=== PATIENT | male | born 1935 | race Caucasian/White ===

== ENCOUNTER 2018-02-13 13:30 | Outpatient (RCR) | payer MEDICARE, OTHER, SELFPAY | END 2018-02-13 15:40 | LOC: SP 13:30 | PROVIDERS: Family Provider Family Medicine; PCP Family Medicine; Visit Provider Psychiatry & Neurology Neurology | DX: G20 Parkinson's disease (principal); R41.89 Other symptoms and signs involving cognitive functions and awareness | CPT/HCPCS: 92507; 92526 ==

== ENCOUNTER → 2018-05-03 08:35 | Outpatient (CLI) | payer MEDICARE, OTHER, SELFPAY ==
[2018-05-03 09:06] LABS: Add Manual Diff / Slide Review NO; Basophils Percent Auto 0.6 % (0-2); Eosinophils Percent Auto 4.5 % (2-4); Hematocrit 43.4 % (41-53); Hemoglobin 14.6 g/dL (13.5-17.5); Lymphocytes Percent Auto 38.1 % (25-40); Mean Corpuscular HGB Conc 33.7 % (30-36); Mean Corpuscular Volume 91.9 fL (80-100); Monocytes Percent Auto 7.8 % (3-14); Neutrophils Absolute Auto 2900 /uL (3000-5900); Platelet Count 137 X10^3/uL (150-400); Red Blood Cell Count 4.72 X10^6/uL (4.5-5.9); Red Cell Distribution Width 13.2 % (11.6-14.8); White Blood Cell Count 5.8 X10^3/uL (4.5-11.0)
[2018-05-03 09:25] LABS: Alanine Aminotransferase 17 IU/L (21-72); Albumin 4.3 g/dL (3.5-5.0); Albumin Globulin Ratio 1.7 (1.0-2.8); Alkaline Phosphatase 56 U/L (38-126); Aspartate Aminotransferase 28 IU/L (17-59); Bilirubin Total 0.9 mg/dL (0.2-1.3); Blood Urea Nitrogen 18 mg/dL (9-20); Calcium 9.2 mg/dL (8.4-10.2); Carbon Dioxide 32 mmol/L (22-32); Chloride 103 mmol/L (98-107); Cholesterol 107 mg/dL (140-199); Estimated Glomerular Filt Rate > 60.0 mL/min (>60); Globulin 2.6 g/dL (1.7-4.1); Glucose 120 mg/dL (80-110); HDL Cholesterol 49 mg/dL (40-60); HEMOLYSIS < 15 (0-50); LDL Cholesterol Calculated 48 mg/dL (<100); Potassium 4.3 mmol/L (3.4-5.1); Sodium 144 mmol/L (137-145); Total Protein 6.9 g/dL (6.3-8.2); Triglycerides 50 mg/dL (35-150)
== END ==
PROVIDERS: Family Provider Family Medicine; PCP Family Medicine; Visit Provider Family Medicine
DX: E03.9 Hypothyroidism, unspecified (principal); E78.5 Hyperlipidemia, unspecified; G20 Parkinson's disease
CPT/HCPCS: 80053; 80061; 84443; 85025

== ENCOUNTER → 2018-05-09 13:41 | Outpatient (CLI) | payer MEDICARE, OTHER, SELFPAY ==
--- NOTE | 2018-05-09 | DI.MRI.S_ITS ---
PROCEDURE: MR HEAD/BRAIN WO/W CON INDICATIONS: MENINGIOMA TECHNIQUE: Noncontrast axial T1 spin echo, axial T2 fast spin echo, sagittal and axial FLAIR, coronal T2 fast spin echo, axial gradient echo, axial diffusion and ADC through the brain. After the administration of contrast, axial and coronal 3D VIBE or T1 spin echo with fat saturation through the brain. COMPARISON: [facility], EC, ECHOCARDIOGRAM COMPLETE, 05/17/2017, 10:57. [facility], CT, HEAD AND NECK ANGIO, 05/26/2017, 14:20. [facility], MR, STROKE PROTOCOL, 05/03/2017, 11:10. [facility], CT, HEAD WITHOUT CONTRAST, 05/02/2017, 17:07. [facility], MR, STROKE PROTOCOL, 08/05/2014, 9:39. FINDINGS: Image quality: Excellent. CSF Spaces: Basal cisterns are patent. No extra-axial fluid collections. Ventricles are normal in size and shape. Brain: No midline shift. No intracranial bleeds or masses. No abnormal intracranial enhancement. The brainstem appears normal. Diffusion-weighted images demonstrate no acute ischemic insults. No chronic ischemic insults. There is expected postoperative changes after left temporal meningioma resection without evidence of recurrence. No new lesion elsewhere has developed. Normal intravascular flow voids are present. Skull and face: Calvarial marrow is normal in signal. Orbits appear normal. Sinuses: Sinuses and mastoids appear clear. IMPRESSION: Prior craniotomy and postoperative changes of prior left temporal meningioma resection. Stable mild encephalomalacia in that area. No new lesion or evidence of recurrent meningioma is found. Dictated by: Jus Killian M.D. on 05/09/2018 at 15:07 Approved by: Jus Killian M.D. on 05/09/2018 at 15:10
== END ==
PROVIDERS: PCP Family Medicine; Visit Provider Specialist
DX: D32.0 Benign neoplasm of cerebral meninges (principal); G93.89 Other specified disorders of brain
CPT/HCPCS: 70553; A9579

== ENCOUNTER 2018-10-15 09:55 | Emergency (ER) | payer MEDICARE, OTHER, SELFPAY ==
[2018-10-15 10:05] VITALS: BP 171/129; PULSE 71; RESP 16; TEMP 37.4; O2SAT 97; BMI 22.4
--- NOTE | 2018-10-15 10:29 | DI.RAD.S_ITS ---
PROCEDURE: XR CHEST 1V INDICATIONS: chest pain TECHNIQUE: One view of the chest was acquired. COMPARISON: [facility], , CHEST 1 VIEW, 05/02/2017, 16:52. FINDINGS: Surgical changes and devices: None. Lungs and pleura: Lungs are clear. No pleural effusions or pneumothorax. Elevation of the left hemidiaphragm is stable. Mediastinum: Mediastinal contours appear normal. Heart size is normal. Bones and chest wall: No suspicious bony lesions. Overlying soft tissues appear unremarkable. IMPRESSION: No acute cardiopulmonary disease process. Dictated by: Ana Kumar MD, PhD on 10/15/2018 at 10:44 Approved by: Ana Kumar MD, PhD on 10/15/2018 at 10:45
[2018-10-15 10:30] VITALS: BP 115/78; PULSE 68; RESP 22; O2SAT 94
[2018-10-15 10:40] LABS: Add Manual Diff / Slide Review NO; Basophils Absolute Auto 0 /uL (0-100); Basophils Percent Auto 0.2 % (0-2); Eosinophils Absolute Auto 0 /uL (0-450); Hematocrit 39.8 % (41-53); Hemoglobin 13.3 g/dL (13.5-17.5); Lymphocytes Absolute Auto 500 /uL (1100-4500); Lymphocytes Percent Auto 7.3 % (25-40); Mean Corpuscular HGB Conc 33.5 % (30-36); Mean Corpuscular Volume 92.5 fL (80-100); Monocytes Absolute Auto 800 /uL (0-900); Monocytes Percent Auto 10.4 % (3-14); Neutrophils Absolute Auto 6100 /uL (1500-7000); Neutrophils Percent Auto 82.1 % (50-75); Platelet Count 101 X10^3/uL (150-400); Red Blood Cell Count 4.31 X10^6/uL (4.5-5.9); Red Cell Distribution Width 13.7 % (11.6-14.8); White Blood Cell Count 7.5 X10^3/uL (4.5-11.0)
[2018-10-15 10:46] LABS: INR 1.4 (0.9-1.3); Prothrombin Time 16.1 SECONDS (10.1-12.7)
[2018-10-15 10:48] LABS: PTT Partial Thromboplastin Tim 31 SECONDS (26.4-36.2)
[2018-10-15 10:52] LABS: Lactate (Lactic Acid) 1.3 mmol/L (0.7-2.1)
[2018-10-15 10:53] LABS: Alanine Aminotransferase 19 IU/L (21-72); Albumin Globulin Ratio 1.4 (1.0-2.8); Alkaline Phosphatase 57 U/L (38-126); Aspartate Aminotransferase 23 IU/L (17-59); BUN Creatinine Ratio 28.6 (6-22); Bilirubin Total 0.7 mg/dL (0.2-1.3); Blood Urea Nitrogen 20 mg/dL (9-20); Calcium 8.8 mg/dL (8.4-10.2); Carbon Dioxide 25 mmol/L (22-32); Chloride 101 mmol/L (98-107); Creatine Kinase 66 U/L (55-170); Estimated Glomerular Filt Rate > 60.0 mL/min (>60); Globulin 2.9 g/dL (1.7-4.1); Glucose 117 mg/dL (80-110); HEMOLYSIS < 15 (0-50); Lipase 32 U/L (23-300); Sodium 136 mmol/L (137-145); Total Protein 6.9 g/dL (6.3-8.2)
[2018-10-15 11:03] LABS: Troponin I < 0.012 ng/mL (0.01-0.034)
[2018-10-15 11:05] VITALS: BP 115/73; PULSE 67
--- NOTE | 2018-10-15 11:16 | ED_ITS ---
HPI - URI/Sore Throat General Chief Complaint: Upper Respiratory Symptoms Stated Complaint: deep cough, throwing up, fever, no energy Time Seen by Provider: 10/15/18 11:13 Source: patient and family () Mode of arrival: ambulatory Limitations: no limitations History of Present Illness HPI Narrative: This is an 82-year-old male comes the emergency department with complaint of fever of 102 F this morning. Patient started having symptoms yesterday with some nasal congestion and a deep wet cough which has been n onproductive. Patient states that he has perhaps some very mild shortness of breath but none that he appreciates and or has been affecting him and prevent him from moving around. He denies any chest pressure or pain, he denies any abdominal pain. He has had nausea and vomiting overnight which he states has resolved here in the ER. He has had some mild constipation but been having bowel movements. He chronically has issues with some urinary hesitancy which has been slightly worse the last 2 weeks. He has not had any burning or other urinary issues. Patient has not had any swelling in his extremities. he does have a history with Parkinson's he takes levodopa carbidopa as well as Zoloft to help with some of the effects of his Parkinson's. He takes an aspirin and atorvastatin for prior TIA. Patient has no prior surgeries according to him or his . No allergies to medications. He lives with his . Related Data Home Medications Medication Instructions Recorded Confirmed cholecalciferol (vitamin D3) 1,000 unit PO QAM #0 sgl 04/08/13 10/15/18 [Vitamin D3] carbidopa-levodopa 2 tab PO QID #0 05/02/17 10/15/18 aspirin 81 mg tablet,delayed 81 mg PO QPM 11/29/17 10/15/18 release coenzyme Q10 100 mg capsule 200 mg PO DAILY 06/04/18 10/15/18 Lion's Artemio Mushroom 2 cap PO 1200 10/15/18 10/15/18 Probiotic 1 cap PO QAM 10/15/18 10/15/18 atorvastatin 20 mg PO QPM 10/15/18 10/15/18 sertraline 100 mg PO QAM 10/15/18 10/15/18 vitamins A,C,J-fjnc-azjaht 2 tab PO BID 10/15/18 10/15/18 [PreserVision AREDS] Previous Rx's Medication Instructions Recorded ondansetron HCl [Zofran] 4 mg PO Q6-8H PRN #10 tab 10/15/18 oseltamivir [Tamiflu] 75 mg PO BID 5 Days #10 cap 10/15/18 Allergies Allergy/AdvReac Type Severity Reaction Status Date / Time No Known Drug Allergies Allergy Verified 10/15/18 10:12 Review of Systems Review of Systems ROS Unobtainable: All systems reviewed & are unremarkable except as noted in HPI and below Constitutional Denies body ache(s), Reports chills, Reports fever(s), Denies lethargy and Denies weakness ENT Ears, Nose, Mouth, and Throat: Reports nasal congestion Cardiovascular Denies chest pain, Denies edema, Denies irregular heart rhythm, Denies lightheadedness, Denies dyspnea and Denies dyspnea on exertion Respiratory Denies change in phlegm color, Denies chest congestion, Reports cough (Wet cough), Denies excessive phlegm production, Denies dyspnea, Denies dyspnea on exertion and Denies wheezing Gastrointestinal Gastrointestinal: Denies abdominal pain, Denies change in bowel habits, Reports constipation, Denies diarrhea, Reports nausea and Reports vomiting Genitourinary Denies dysuria, Denies urinary frequency, Reports urinary hesitancy, Denies urinary incontinence and Reports urinary urgency Musculoskeletal Denies myalgias Integumentary/Breasts Denies rash Neurologic Reports as per HPI (Parkinson's disease) and Denies weakness Allergic/Immunologic Denies wheezing [facility] Medical History Cognitive decline (Chronic) TIA (transient ischemic attack) (Resolved) Hyperlipidemia (Chronic 03/13/13) Acquired hypothyroidism (Chronic 08/08/14) Intracranial tumor (Chronic 08/08/14) Meningioma (Chronic 09/09/14) Left anterior fascicular block (LAFB) (Chronic 09/09/14) Cerebrovascular accident (CVA) (Resolved 05/11/17) Parkinson's disease (Chronic 05/25/17) Cardiac arrhythmia (Chronic ~2012) Vertigo (Chronic 2013) Asthma (Resolved) Cataract (Resolved 2009) Chicken pox (Resolved) Colon polyps (Resolved 2010) Diverticular disease (Resolved ~2010) Hayfever (Resolved) Hemorrhoids (Resolved ~2010) Hydrocele (Resolved ~2011) Measles (Resolved) Mumps (Resolved) RLS (restless legs syndrome) (Resolved 2012) Rubella (Resolved) Surgical History Anesthesia (Resolved) H/O removal of cyst (Resolved ~1999) History of cataract removal with insertion of prosthetic lens (Resolved 04/2012) History of vasectomy (Resolved 1969) Status post eye surgery (Resolved 1988) Status post eye surgery (Resolved 1989) Status post repair of hydrocele (Resolved 03/2012) Family History Sister Age: 76 Multiple myeloma in remission Father No problems noted. Mother Lung cancer Social History marital status: Smoking Status: Never smoker alcohol intake: current (ON OCCASION ) Family History Sister Age: 76 Multiple myeloma in remission Father No problems noted. Mother Lung cancer Social History marital status: Smoking Status: Never smoker alcohol intake: current (ON OCCASION ) Exam Narrative Exam Narrative: GEN: well nourished, well appearing male, alert and oriented x 3, patient appears to be in no acute distress. HEENT: Atraumatic, pupils are equal round reactive to light, extraocular movements are intact, nares are clear, TMs are clear with no fluid, there is no conjunctival pallor. Throat is clear without any exudates, erythema, tonsillar enlargement or uvular deviation HEART: Regular rate and rhythm without murmur, clicks, rubs. pulses equal bilateral upper extremities. LUNGS:Lungs clear to auscultation, no wheezes, rales, crackles, chest moves sym metrically, no tachypnea or accessory muscle use. Speaks in full sentences. ABD:bowel sounds normal, soft, non-tender, no guarding, rebound, rigidity, no masses noted, no hepatosplenomegaly MSCL: Non-tender, full range of motion. NEURO:CN 2-12 intact, sensation normal normal Initial Vital Signs Initial Vital Signs: Vital Signs Temperature 99.4 F 10/15/18 10:05 Pulse Rate 71 10/15/18 10:05 Respiratory Rate 16 10/15/18 10:05 Blood Pressure 171/129 H 10/15/18 10:05 Pulse Oximetry 97 10/15/18 10:05 Course Orders Ordered: ED Orders 10/15/18 10:17 FLU A and B [Influenza A and B by PCR Rapid] Stat 10/15/18 10:20 Complete Blood Count AUTO DIFF Stat Comprehensive Metabolic Panel Stat Lactate (Lactic Acid) Stat Lipase Stat Partial Thromboplastin Time Stat Prothrombin Time INR Stat Troponin & CK Cardiac Panel Stat 10/15/18 10:29 XR chest 1V Stat EKG-12 Lead Stat 10/15/18 11:08 Urine Culture Stat Urine Microscopic Stat Vital Signs - 8 hr 10/15/18 11:05 10/15/18 11:30 10/15/18 12:00 Pulse Rate 67 66 63 Respiratory Rate 25 H 19 Blood Pressure [Right Arm] 115/73 109/65 96/62 Pulse Oximetry 93 94 MDM - URI/Sore Throat Lab Data Attestation: I reviewed the patient's lab results. Result diagrams: 10/15/18 10:20 10/15/18 10:20 Lab Results 10/15/18 10/15/18 10/15/18 Range/Units 10:17 10:20 10:20 WBC 7.5 (4.5-11.0) X10^3/uL RBC 4.31 L (4.5-5.9) X10^6/uL Hgb 13.3 L (13.5-17.5) g/dL Hct 39.8 L (41-53) % MCV 92.5 (80-100) fL MCH 31.0 (26-34) PG MCHC 33.5 (30-36) % RDW 13.7 (11.6-14.8) % Plt Count 101 L (150-400) X10^3/uL Neut % (Auto) 82.1 H (50-75) % Lymph % (Auto) 7.3 L (25-40) % [place] % (Auto) 10.4 (3-14) % Eos % (Auto) 0.0 L (2-4) % Baso % (Auto) 0.2 (0-2) % Neut # (Auto) 6100 (8261-6991) /uL Lymph # (Auto) 500 L (5917-4118) /uL [place] # (Auto) 800 (0-900) /uL Eos # (Auto) 0 (0-450) /uL Baso # (Auto) 0 (0-100) /uL PT 16.1 H (10.1-12.7) SECONDS INR 1.4 H (0.9-1.3) APTT 31 (26.4-36.2) SECONDS Sodium (137-145) mmol/L Potassium (3.4-5.1) mmol/L Chloride (98-107) mmol/L Carbon Dioxide (22-32) mmol/L BUN (9-20) mg/dL Creatinine (0.66-1.25) mg/dL Estimated GFR (>60) mL/min BUN/Creatinine Ratio (6-22) Glucose (80-110) mg/dL Lactate (0.7-2.1) mmol/L Calcium (8.4-10.2) mg/dL Total Bilirubin (0.2-1.3) mg/dL AST (17-59) IU/L ALT (21-72) IU/L Alkaline Phosphatase (38-126) U/L Total Creatine Kinase (55-170) U/L CK-MB (CK-2) CK-MB (CK-2) Rel Index Troponin I (0.01-0.034) ng/mL Total Protein (6.3-8.2) g/dL Albumin (3.5-5.0) g/dL Globulin (1.7-4.1) g/dL Albumin/Globulin Ratio (1.0-2.8) Lipase (23-300) U/L Urine RBC (0-5/HPF) Urine WBC (0-5/HPF) Amorphous Sediment Urine Bacteria (None) Urine Mucus (Negative) Ur Culture Indicated? Influenza A & B (PCR) Positive, type a H (Negative) 10/15/18 10/15/18 10/15/18 Range/Units 10:20 10:20 11:08 WBC (4.5-11.0) X10^3/uL RBC (4.5-5.9) X10^6/uL Hgb (13.5-17.5) g/dL Hct (41-53) % MCV (80-100) fL MCH (26-34) PG MCHC (30-36) % RDW (11.6-14.8) % Plt Count (150-400) X10^3/uL Neut % (Auto) (50-75) % Lymph % (Auto) (25-40) % [place] % (Auto) (3-14) % Eos % (Auto) (2-4) % Baso % (Auto) (0-2) % Neut # (Auto) (0846-0055) /uL Lymph # (Auto) (4037-1785) /uL [place] # (Auto) (0-900) /uL Eos # (Auto) (0-450) /uL Baso # (Auto) (0-100) /uL PT (10.1-12.7) SECONDS INR (0.9-1.3) APTT (26.4-36.2) SECONDS Sodium 136 L (137-145) mmol/L Potassium 4.0 (3.4-5.1) mmol/L Chloride 101 (98-107) mmol/L Carbon Dioxide 25 (22-32) mmol/L BUN 20 (9-20) mg/dL Creatinine 0.70 (0.66-1.25) mg/dL Estimated GFR > 60.0 (>60) mL/min BUN/Creatinine Ratio 28.6 H (6-22) Glucose 117 H (80-110) mg/dL Lactate 1.3 (0.7-2.1) mmol/L Calcium 8.8 (8.4-10.2) mg/dL Total Bilirubin 0.7 (0.2-1.3) mg/dL AST 23 (17-59) IU/L ALT 19 L (21-72) IU/L Alkaline Phosphatase 57 (38-126) U/L Total Creatine Kinase 66 (55-170) U/L CK-MB (CK-2) TNP CK-MB (CK-2) Rel Index TNP Troponin I < 0.012 (0.01-0.034) ng/mL Total Protein 6.9 (6.3-8.2) g/dL Albumin 4.0 (3.5-5.0) g/dL Globulin 2.9 (1.7-4.1) g/dL Albumin/Globulin Ratio 1.4 (1.0-2.8) Lipase 32 (23-300) U/L Urine RBC None seen (0-5/HPF) Urine WBC 5-10/hpf H (0-5/HPF) Amorphous Sediment 2+ Urine Bacteria None seen (None) Urine Mucus 3+ H (Negative) Ur Culture Indicated? Specimen cultured Influenza A & B (PCR) (Negative) Urine Dip Bedside Urine Glucose Negative Bedside Urine Bilirubin - Negative Bedside Urine Ketone +/- 5 Urine Specific [place] 1.030 Bedside Urine Occult Blood - Negative Bedside Urine pH 6.0 Bedside Urine Protein + 30 Bedside Urine Urobilinogen +/- 1mg Bedside Urine Nitrite - Negative Bedside Urine Leukocytes - Negative Esterase Imaging Data Chest x-ray: Radiologist's impression: Juliocesar Garcia 82 M [address] [address] XRay Report Signed Patient: Juliocesar Garcia DMR#: [id number] : 5Acct:[id number] Age/Sex: 82 / MDate of Service: 10/15/18 Loc: ED Accession Number: [id number] Procedure: XR chest 1V Ordering Provider: Lisa Masterson D.O. PROCEDURE: XR CHEST 1V INDICATIONS: chest pain TECHNIQUE: One view of the chest was acquired. COMPARISON: [facility], , CHEST 1 VIEW, 05/02/2017, 16:52. FINDINGS: Surgical changes and devices: None. Lungs and pleura: Lungs are clear. No pleural effusions or pneumothorax. Elevation of the left hemidiaphragm is stable. Mediastinum: Mediastinal contours appear normal. Heart size is normal. Bones and chest wall: No suspicious bony lesions. Overlying soft tissues appear unremarkable. IMPRESSION: No acute cardiopulmonary disease process. Dictated by: Ana Kumar MD, PhD on 10/15/2018 at 10:44 Approved by: Ana Kumar MD, PhD on 10/15/2018 at 10:45 ECG Data Attestation: I personally reviewed and interpreted this ECG as follows: Prior ECG tracings: available for review Interpretation: Sinus rhythm rate of 66 P are 128 QRS of 164 and QTC of 412. Right bundle branch block with left anterior fascicular block. Patient has similar changes on prior EKG from 05/02/2017 perhaps a little bit less depression of the ST interval although still present. MDM Narrative Medical decision making narrative: Patient is positive for influenza, rest of lab work shows no major abnormalities. EKG appears fairly similar to prior with a negative chest x-ray. Patient has not had any more nausea vomiting here. He has an IV in place and offered a L of fluids versus oral hydration at home. Him and his both prefer to return home at this time. Given a script for Zofran for nausea as well as Tamiflu based on age and comorbidities. Patient is within the 24-48 hour range to start the medication. Discussed signs and symptoms to watch for and reasons to return emergently. I did check for medication interactions with same and did not find any other than with his medications such as Zoloft and levodopa carbidopa. Discharge Plan Departure Patient Disposition: Home Clinical Impression: Influenza Discharge Date/Time: 10/15/18 12:20 Interventions: ED Discharge Assessment Last Done: 10/15/18 12:19 Instructions: DI for Influenza -- Adult Activity Restrictions/Additional Instructions: Follow-up with your primary care provider in the next 3-5 days for recheck. Take Tamiflu twice daily x5 days. You may take Zofran 1 tablet every 6 hours as needed for symptoms. Continue ibuprofen and/or Tylenol as needed for fevers. Return to the emergency department for persistent fevers, persistent vomiting, lightheadedness, passing out, weakness, new chest pain, shortness of breath or other new or concerning symptoms. Prescriptions: New ondansetron HCl [Zofran] 4 mg tablet 4 mg PO Q6-8H PRN (Reason: nausea and vomiting) Qty: 10 RF: 0 oseltamivir [Tamiflu] 75 mg capsule 75 mg PO BID 5 Days Qty: 10 RF: 0 No Action cholecalciferol (vitamin D3) [Vitamin D3] 1,000 unit Capsule 1,000 unit PO QAM Qty: 0 RF: 0 carbidopa-levodopa 25 MG/100 MG tablet 2 tab PO QID Qty: 0 RF: 0 aspirin [Adult Low Dose Aspirin] 81 mg tablet,delayed release (DR/EC) 81 mg PO QPM RF: 0 coenzyme Q10 [CoQ-10] 100 mg capsule 200 mg PO DAILY RF: 0 sertraline 100 mg tablet 100 mg PO QAM RF: 0 PreserVision AREDS [id number] Tablet 2 tab PO BID RF: 0 Probiotic 1 cap PO QAM RF: 0 atorvastatin 20 mg tablet 20 mg PO QPM RF: 0 Lion's Artemio Mushroom 2 cap PO 1200 RF: 0 Referrals: Guzman Guaman MD [Primary Care Provider] -
[2018-10-15 11:30] VITALS: BP 109/65; PULSE 66; RESP 25; O2SAT 93
[2018-10-15 12:00] VITALS: BP 96/62; PULSE 63; RESP 19; O2SAT 94
[2018-10-15 12:18] LABS: Bacteria Urine None Seen; RBC Urine None Seen (0-5/HPF)
[2018-10-15 12:37] LABS: Amorphous Sediment Urine 2+; Culture Indicated Urine Specimen Cultured; Mucus Urine 3+ (Negative); WBC Urine 5-10/HPF (0-5/HPF)
== END 2018-10-15 12:20 | disposition home or self-care (01) ==
PROVIDERS: Emergency Provider Emergency Medicine; PCP Family Medicine
DX: J11.1 Influenza due to unidentified influenza virus with other respiratory manifestations (principal); R07.9 Chest pain, unspecified
CPT/HCPCS: 36591; 71045; 80053; 81003; 81015; 82550; 83605; 83690; 84484; 85025; 85610; 85730; 87086; 87400; 93005; 99283; 99285

== ENCOUNTER → 2019-03-08 08:34 | Outpatient (CLI) | payer MEDICARE, OTHER, SELFPAY ==
[2019-03-08 09:24] LABS: Add Manual Diff / Slide Review NO; Basophils Absolute Auto 0 /uL (0-100); Basophils Percent Auto 0.9 % (0-2); Eosinophils Absolute Auto 300 /uL (0-450); Eosinophils Percent Auto 5.3 % (2-4); Hematocrit 41.9 % (41-53); Hemoglobin 14.5 g/dL (13.5-17.5); Lymphocytes Absolute Auto 2200 /uL (1100-4500); Lymphocytes Percent Auto 41.8 % (25-40); Mean Corpuscular HGB Conc 34.7 % (30-36); Mean Corpuscular Hemoglobin 31.8 PG (26-34); Mean Corpuscular Volume 91.7 fL (80-100); Monocytes Absolute Auto 400 /uL (0-900); Monocytes Percent Auto 7.9 % (3-14); Neutrophils Absolute Auto 2300 /uL (1500-7000); Neutrophils Percent Auto 44.1 % (50-75); Platelet Count 117 X10^3/uL (150-400); Red Blood Cell Count 4.57 X10^6/uL (4.5-5.9); Red Cell Distribution Width 12.9 % (11.6-14.8); White Blood Cell Count 5.3 X10^3/uL (4.5-11.0)
[2019-03-08 09:56] LABS: Blood Urea Nitrogen 20 mg/dL (9-20); Carbon Dioxide 30 mmol/L (22-32); Chloride 103 mmol/L (98-107); Estimated Glomerular Filt Rate > 60.0 mL/min (>60); Glucose 105 mg/dL (80-110); HEMOLYSIS < 15 (0-50); Potassium 4.2 mmol/L (3.4-5.1); Sodium 138 mmol/L (137-145)
== END ==
PROVIDERS: PCP Family Medicine; Visit Provider Family Medicine
DX: D64.9 Anemia, unspecified (principal); E87.1 Hypo-osmolality and hyponatremia
CPT/HCPCS: 36415; 80048; 85025

== ENCOUNTER → 2019-03-27 12:34 | Outpatient (CLI) | payer MEDICARE, OTHER, SELFPAY ==
[2019-03-27 13:09] LABS: Hematocrit 44.1 % (41-53); Hemoglobin 14.8 g/dL (13.5-17.5); Mean Corpuscular HGB Conc 33.5 % (30-36); Mean Corpuscular Hemoglobin 31.5 PG (26-34); Mean Corpuscular Volume 94.1 fL (80-100); Platelet Count 146 X10^3/uL (150-400); Red Blood Cell Count 4.69 X10^6/uL (4.5-5.9); Red Cell Distribution Width 13.2 % (11.6-14.8); White Blood Cell Count 5.1 X10^3/uL (4.5-11.0)
[2019-03-27 13:17] LABS: INR 1.2 (0.9-1.3); Prothrombin Time 13.5 SECONDS (10.1-12.7)
[2019-03-27 13:53] LABS: BUN Creatinine Ratio 23.3 (6-22); Blood Urea Nitrogen 21 mg/dL (9-20); Calcium 9.5 mg/dL (8.4-10.2); Carbon Dioxide 32 mmol/L (22-32); Chloride 102 mmol/L (98-107); Estimated Glomerular Filt Rate > 60.0 mL/min (>60); Glucose 62 mg/dL (80-110); HEMOLYSIS < 15 (0-50); Sodium 142 mmol/L (137-145)
[2019-03-27 14:22] LABS: Neutrophils Absolute Manual 2550 /uL (3000-5900); Total Cells Counted 100
[2019-03-27 14:24] LABS: RBC Morphology Normal Morphology
== END ==
PROVIDERS: PCP Family Medicine; Visit Provider Family Medicine
DX: R79.1 Abnormal coagulation profile (principal); E03.9 Hypothyroidism, unspecified; E78.5 Hyperlipidemia, unspecified; I63.9 Cerebral infarction, unspecified
CPT/HCPCS: 36415; 80048; 85025; 85610

== ENCOUNTER → 2019-06-10 11:40 | Outpatient (CLI) | payer MEDICARE, OTHER, SELFPAY ==
--- NOTE | 2019-06-10 | DI.MRI.S_ITS ---
PROCEDURE: MR HEAD/BRAIN WO/W CON INDICATIONS: Benign neoplasm of meninges, unspecified TECHNIQUE: Noncontrast axial T1 spin echo, axial T2 fast spin echo, sagittal and axial FLAIR, coronal T2 fast spin echo, axial gradient echo, axial diffusion and ADC through the brain. After the administration of contrast, axial and coronal 3D VIBE or T1 spin echo with fat saturation through the brain. COMPARISON: [facility], MR, STROKE PROTOCOL, 08/05/2014, 9:39. [facility], MR, STROKE PROTOCOL, 05/03/2017, 11:10. [facility], MR, MR HEAD/BRAIN WO/W CON, 05/09/2018, 13:53. FINDINGS: Image quality: Excellent. CSF Spaces: Basal cisterns are patent. No extra-axial fluid collections. Ventricles are unchanged in size and shape, with expected postsurgical change at the left frontal cranial fossa tip anteriorly. Brain: No midline shift. No intracranial bleeds or masses. No abnormal intracranial enhancement. The brainstem appears normal. Diffusion-weighted images demonstrate no acute ischemic insults. No chronic ischemic insults. Normal intravascular flow voids are present. Skull and face: Calvarial marrow is normal in signal. Orbits appear normal. Sinuses: Sinuses and mastoids appear clear. IMPRESSION: Prior reported meningioma resection left anterior temporal fossa, no evidence of recurrent neoplasm or interval development of new abnormality elsewhere. Dictated by: Jus Killian M.D. on 06/10/2019 at 14:02 Approved by: Jus Killian M.D. on 06/10/2019 at 14:05
== END ==
PROVIDERS: PCP Family Medicine; Visit Provider Specialist
DX: D32.9 Benign neoplasm of meninges, unspecified (principal)
CPT/HCPCS: 70553; A9579

== ENCOUNTER 2019-09-11 14:30 | Outpatient (RCR) | payer MEDICARE, OTHER, SELFPAY ==
--- NOTE | 2019-08-08 16:00 | PT.OPPOC ---
Physical, Occupational & Speech Therapy At [facility] Current Diagnoses Parkinson's disease (08/08/19) Frequency of micturition (08/08/19) Visit Care Team Role Provider Type Guzman Guaman MD Primary Care Provider Physician Specialty: Family Practice Address: [facility] [place], [address] Email: [email or web address] Jasper Mead MD Attending Provider Non-Staff Specialty: Internal Medicine Address: [address] [place], [address] Fax: Email: Plan Of Care PT-OP-T Assessment and Plan Start: 08/08/19 08:09 Freq: Status: Active Protocol: Document 08/08/19 13:45 AMB (Rec: 08/08/19 16:17 AMB [id number]) Physical Therapy Assessment Rehab Potential Rehabilitation Potential Fair Evaluation Complexity Number of Personal Factors/Comorbidities 3 or More Number of Body Systems Impaired 3 Clinical Presentation at Evaluation Evolving Impairments Impairments Coordination,Functional Activities,Strength Goals Three Impairment Pelvic floor strength Short Term Goal (STG) Juliocesar will improve his pelvic floor strength to 4/5. STG Duration 4 weeks Pipe Recovery Specialist Goal (LTG) Juliocesar will contract his pelvic floor in standing for 5 seconds without holding his breath or over using his abdominal muscles or gluteals. LTG Duration 8 weeks Two Impairment Frequency Short Term Goal (STG) Juliocesar will decrease his day time frequency to urinating every 2 hours. STG Duration 4 weeks Pipe Recovery Specialist Goal (LTG) Juliocesar will decrease his nighttime frequency to 4 voids per night. LTG Duration 8 weeks One Impairment Urgency Short Term Goal (STG) Juliocesar will be independent with his urge reduction HEP so he does not strickland to the bathroom during the day. STG Duration 4 weeks Assessment Summary Assessment Juliocesar attends PT with his [place] with worsening urinary urgency, frequency, and incontinence over the past few years, mostly related to his Parkinson's disease. He has tried prior pelvic floor physical therapy that per his 's report mostly worked on biofeedback and pelvic floor strengthening, but they did not feel that it was helpful. He denies fecal incontinence, but is constipated. He does report triggers like driving into the driveway, and did have an incontinent episode at during PT when his was removing his brief to get him ready for the internal assessment. He fluid restricts significantly ( thinks 12-20oz fluid per 24hr period) Juliocesar will benefit from PT to instruct him in urge reduction, behavioral changes, and some pelvic floor strengthening, although due to the nature of his bladder spasms due to Parkinson's, and the progressive nature of his disease, his progress may be slow. Physical Therapy Plan Frequency and Duration Frequency of Treatment 1x/Week Duration of Treatment 8 weeks Plan of Care Start Date 08/08/19 Plan of Care End Date 10/03/19 Therapeutic Interventions Therapeutic Interventions Home Exercise Program,Manual Therapy,Neuromuscular Re- education,Self-Care/Home Management,Therapeutic Activities,Therapeutic Exercises Modalities Biofeedback,Electric Stimulation Next Visit Focus/Plan Next Note Type Treatment Note Next Visit Plan Continue urge reduction education and push fluid consumption. Can consider sEMG/NMES if pt interested. Plan of Care Dates Plan of Care Start Date 08/08/19 Plan of Care End Date 10/03/19 Electronically Signed by: Yennifer Kay, PT 08/09/19 [id number] Please Sign and Return: I have reviewed this Plan of Care and certify that the skilled therapy services above are required to meet the patient?s needs. Physician Signature Date Printed Name and Credentials Clinical Instructor Signature Printed Name and Credentials
--- NOTE | 2019-08-08 16:00 | PT.OIE ---
Current Diagnoses Parkinson's disease (08/08/19) Frequency of micturition (08/08/19) Past Medical History (Last Updated 04/02/19 @ 16:43 by Guzman Guaman MD) Acquired hypothyroidism (Chronic 08/08/14) Asthma (Resolved) Cardiac arrhythmia (Chronic ~2012) Cataract (Resolved 2009) Cerebrovascular accident (CVA) (Resolved 05/11/17) Chicken pox (Resolved) Cognitive decline (Chronic) Colon polyps (Resolved 2010) Diverticular disease (Resolved ~2010) Hayfever (Resolved) Hemorrhoids (Resolved ~2010) Hydrocele (Resolved ~2011) Hyperlipidemia (Chronic 03/13/13) Intracranial tumor (Chronic 08/08/14) Left anterior fascicular block (LAFB) (Chronic 09/09/14) Measles (Resolved) Meningioma (Chronic 09/09/14) Mumps (Resolved) Parkinson's disease (Chronic 05/25/17) Right inguinal hernia (Acute) RLS (restless legs syndrome) (Resolved 2012) Rubella (Resolved) TIA (transient ischemic attack) (Resolved) Vertigo (Chronic 2013) Past Surgical History (Last Reviewed 10/15/18 @ 12:04 by Lisa Masterson DO) Anesthesia (Resolved) H/O removal of cyst (Resolved ~1999) History of cataract removal with insertion of prosthetic lens (Resolved 04/2012) History of vasectomy (Resolved 1969) Status post eye surgery (Resolved 1988) Status post eye surgery (Resolved 1989) Status post repair of hydrocele (Resolved 03/2012) Visit Care Team Role Provider Type Guzman Guaman MD Primary Care Provider Physician Specialty: Family Practice Address: [facility] [place], [address] Email: [email or web address] Jasper Mead MD Attending Provider Non-Staff Specialty: Internal Medicine Address: [address] [place] [address], [phone] Fax: Email: Physical Therapy Initial Evaluation PT-OP-A Visit Information Start: 08/08/19 08:09 Freq: Status: Active Protocol: Document 08/08/19 13:45 AMB (Rec: 08/08/19 15:55 AMB [email or web address]) Out-Patient Physical Therapy Visit Information Visit Information Visit Type Initial Evaluation Visit Start Time 13:45 Visit Stop Time 14:30 Total Visit Minutes 45 Visit Number 1 PT-OP-B Current Condition Start: 08/08/19 08:09 Freq: Status: Active Protocol: Document 08/08/19 13:45 AMB (Rec: 08/08/19 16:08 AMB [email or web address]) Current Condition History of Current Condition Onset Date 2014, progressively worsening Current Complaints Urgency, frequency, urge incontinence History of Current Condition Juliocesar attends PT with his [employer]. She provides most of the history, but he is able to express his concerns. Juliocesar has had worsening urge incontinence so now he is leaking throughout the day and voiding urine due to urgency about every hour. On a good night he is getting up to void urine 4-5x/night. He tends to fluid restrict and per his is only drinking about 12 -20 oz of fluid a day. Pt does have triggers that increase his urgency and cause a leak, like driving into the driveway. He denies leaks with cough, sneeze, lifting. Prior Treatments and Tests Post void residual normal per . Prior pelvic PT in [place], focused on external biofeedback. Future Testing and Treatments Planned Cystoscopy in a month Treatment Goals Patient/Caregiver Goals Leak less, reduce urgency, both daytime and nighttime Prior Functional Status Baseline Function- ADL's Modified Independent Baseline Function- Mobility Modified Independent Current Functional Impairments (Reported) Functional Limitations- ADL's Voids very frequently at night , urgency makes him leak, has been using Depends for the past few years. Functional Limitations- Recreation/ Avoids social activities where Hobbies he doesn't have access to a bathroom Personal Factors Other Personal Factors That May Effect Parkinson's diagnosed in 2016 Therapy/Recovery sx started 2011- per , TIA in 2017, Meningioma with surgical resection in 2014, PT-OP-C Subjective Start: 08/08/19 08:09 Freq: Status: Active Protocol: Document 08/08/19 13:45 AMB (Rec: 08/08/19 15:55 AMB [email or web address]) Patient Questionnaires Pelvic Pain and Urgency/Frequency Patient Symptom Scale Pelvic Pain Score 12 PT-OP-I Pelvic Floor Start: 08/08/19 08:09 Freq: Status: Active Protocol: Document 08/08/19 13:45 AMB (Rec: 08/08/19 15:55 AMB [email or web address]) Pelvic Floor Assessment Urine Urinary Symptoms Urge Sensation Leakage Size Medium Leakage Cause Urge Voiding Frequency every hour Nocturia every 15 min to 4-5x/night Urine Pad Type Depends Bowel Bowel Symptoms Constipation Bowel Movement Frequency every other day [place] Stool Chart Type 1-7 1 Pelvic Clock Inter-Rectal Assessment Pt able to contract, but tends to use gluteals and abs when holding more than 2-3 seconds. Contraction Ability Voluntary Contraction Weak Voluntary Relaxation Moderate Muscle Endurance (Seconds) 5 Number of Quick Contractions In 10 3 Seconds Comments Pelvic Floor Comments 2/5 MMT rectally PT-OP-T Assessment and Plan Start: 08/08/19 08:09 Freq: Status: Active Protocol: Document 08/08/19 13:45 AMB (Rec: 08/08/19 16:17 AMB [email or web address]) Physical Therapy Assessment Rehab Potential Rehabilitation Potential Fair Evaluation Complexity Number of Personal Factors/Comorbidities 3 or More Number of Body Systems Impaired 3 Clinical Presentation at Evaluation Evolving Impairments Impairments Coordination,Functional Activities,Strength Goals Three Impairment Pelvic floor strength Short Term Goal (STG) Juliocesar will improve his pelvic floor strength to 4/5. STG Duration 4 weeks [employer] Goal (LTG) Juliocesar will contract his pelvic floor in standing for 5 seconds without holding his breath or over using his abdominal muscles or gluteals. LTG Duration 8 weeks Two Impairment Frequency Short Term Goal (STG) Juliocesar will decrease his day time frequency to urinating every 2 hours. STG Duration 4 weeks Jail Goal (LTG) Juliocesar will decrease his nighttime frequency to 4 voids per night. LTG Duration 8 weeks One Impairment Urgency Short Term Goal (STG) Juliocesar will be independent with his urge reduction HEP so he does not strickland to the bathroom during the day. STG Duration 4 weeks Assessment Summary Assessment Juliocesar attends PT with his [employer] with worsening urinary urgency, frequency, and incontinence over the past few years, mostly related to his Parkinson's disease. He has tried prior pelvic floor physical therapy that per his 's report mostly worked on biofeedback and pelvic floor strengthening, but they did not feel that it was helpful. He denies fecal incontinence, but is constipated. He does report triggers like driving into the driveway, and did have an incontinent episode at during PT when his was removing his brief to get him ready for the internal assessment. He fluid restricts significantly ( thinks 12-20oz fluid per 24hr period) Juliocesar will benefit from PT to instruct him in urge reduction, behavioral changes, and some pelvic floor strengthening, although due to the nature of his bladder spasms due to Parkinson's, and the progressive nature of his disease, his progress may be slow. Physical Therapy Plan Frequency and Duration Frequency of Treatment 1x/Week Duration of Treatment 8 weeks Plan of Care Start Date 08/08/19 Plan of Care End Date 10/03/19 Therapeutic Interventions Therapeutic Interventions Home Exercise Program,Manual Therapy,Neuromuscular Re- education,Self-Care/Home Management,Therapeutic Activities,Therapeutic Exercises Modalities Biofeedback,Electric Stimulation Next Visit Focus/Plan Next Note Type Treatment Note Next Visit Plan Continue urge reduction education and push fluid consumption. Can consider sEMG/NMES if pt interested.
--- NOTE | 2019-08-15 16:00 | PT.OTN ---
Current Diagnoses Parkinson's disease (08/15/19) Frequency of micturition (08/15/19) Physical Therapy Treatment Note PT-OP-A Visit Information Start: 08/08/19 08:09 Freq: Status: Active Protocol: Document 08/15/19 14:30 AMB (Rec: 08/16/19 08:56 AMB [id number]) Out-Patient Physical Therapy Visit Information Visit Information Visit Type Treatment Note Visit Start Time 14:30 Visit Stop Time 15:15 Total Visit Minutes 45 Visit Number 2 PT-OP-B Current Condition Start: 08/08/19 08:09 Freq: Status: Active Protocol: Document 08/08/19 13:45 AMB (Rec: 08/08/19 16:08 AMB [email or web address]) Current Condition History of Current Condition Onset Date 2014, progressively worsening Current Complaints Urgency, frequency, urge incontinence History of Current Condition Juliocesar attends PT with his [employer]. She provides most of the history, but he is able to express his concerns. Juliocesar has had worsening urge incontinence so now he is leaking throughout the day and voiding urine due to urgency about every hour. On a good night he is getting up to void urine 4-5x/night. He tends to fluid restrict and per his is only drinking about 12 -20 oz of fluid a day. Pt does have triggers that increase his urgency and cause a leak, like driving into the driveway. He denies leaks with cough, sneeze, lifting. Prior Treatments and Tests Post void residual normal per . Prior pelvic PT in [place], focused on external biofeedback. Future Testing and Treatments Planned Cystoscopy in a month Treatment Goals Patient/Caregiver Goals Leak less, reduce urgency, both daytime and nighttime Prior Functional Status Baseline Function- ADL's Modified Independent Baseline Function- Mobility Modified Independent Current Functional Impairments (Reported) Functional Limitations- ADL's Voids very frequently at night , urgency makes him leak, has been using Depends for the past few years. Functional Limitations- Recreation/ Avoids social activities where Hobbies he doesn't have access to a bathroom Personal Factors Other Personal Factors That May Effect Parkinson's diagnosed in 2015 Therapy/Recovery sx started 2011-4 per , TIA in 2018, Meningioma with surgical resection in 2014, PT-OP-C Subjective Start: 08/08/19 08:09 Freq: Status: Active Protocol: Document 08/15/19 14:30 AMB (Rec: 08/16/19 08:56 AMB [id number]) OP-PT Subjective Patient Comments Patient Comments Pt states new meds are helping , unsure about urgency reduction as difficult to do quick flicks, hoping to work on those. PT-OP-I Pelvic Floor Start: 08/08/19 08:09 Freq: Status: Active Protocol: Document 08/08/19 13:45 AMB (Rec: 08/08/19 15:55 AMB [email or web address]) Pelvic Floor Assessment Urine Urinary Symptoms Urge Sensation Leakage Size Medium Leakage Cause Urge Voiding Frequency every hour Nocturia every 15 min to 4-5x/night Urine Pad Type Depends Bowel Bowel Symptoms Constipation Bowel Movement Frequency every other day [place] Stool Chart Type 1-7 1 Pelvic Clock Inter-Rectal Assessment Pt able to contract, but tends to use gluteals and abs when holding more than 2-3 seconds. Contraction Ability Voluntary Contraction Weak Voluntary Relaxation Moderate Muscle Endurance (Seconds) 5 Number of Quick Contractions In 10 3 Seconds Comments Pelvic Floor Comments 2/5 MMT rectally PT-OP-Q Treatments Start: 08/08/19 08:09 Freq: Status: Active Protocol: Document 08/15/19 14:30 AMB (Rec: 08/16/19 09:09 AMB [id number]) Neuro Re-Education Treatment Other Activities 1 Details sEMG Reps/Duration quick flicks and long holds Comments vc to avoid excessive abs, pt to place hand over the abs. Began education in breathing technique. PT-OP-T Assessment and Plan Start: 08/08/19 08:09 Freq: Status: Active Protocol: Document 08/15/19 14:30 AMB (Rec: 08/16/19 08:56 AMB [id number]) Physical Therapy Assessment Assessment Summary Assessment Juliocesar was challenged by shayne pelvic floor without engaging TA too much. sEMG levels baseline 2.5, max 20. reports pt challenged by doffing Depends that are soiled with urine before he gets to the toilet and then leaks more as urgency increases. Physical Therapy Plan Next Visit Focus/Plan Next Note Type Treatment Note Next Visit Plan Consider NMES next visit, check in with pt on thoughts on sEMG
--- NOTE | 2019-08-22 17:55 | PT.OTN ---
Current Diagnoses Parkinson's disease (08/22/19) Frequency of micturition (08/22/19) Physical Therapy Treatment Note PT-OP-A Visit Information Start: 08/08/19 08:09 Freq: Status: Active Protocol: Document 08/22/19 14:30 AMB (Rec: 08/23/19 17:55 AMB [email or web address]) Out-Patient Physical Therapy Visit Information Visit Information Visit Type Treatment Note Visit Start Time 14:30 Visit Stop Time 15:15 Total Visit Minutes 45 Visit Number 3 PT-OP-B Current Condition Start: 08/08/19 08:09 Freq: Status: Active Protocol: Document 08/08/19 13:45 AMB (Rec: 08/08/19 16:08 AMB [email or web address]) Current Condition History of Current Condition Onset Date 2014, progressively worsening Current Complaints Urgency, frequency, urge incontinence History of Current Condition Juliocesar attends PT with his [employer]. She provides most of the history, but he is able to express his concerns. Juliocesar has had worsening urge incontinence so now he is leaking throughout the day and voiding urine due to urgency about every hour. On a good night he is getting up to void urine 4-5x/night. He tends to fluid restrict and per his is only drinking about 12 -20 oz of fluid a day. Pt does have triggers that increase his urgency and cause a leak, like driving into the driveway. He denies leaks with cough, sneeze, lifting. Prior Treatments and Tests Post void residual normal per . Prior pelvic PT in [place], focused on external biofeedback. Future Testing and Treatments Planned Cystoscopy in a month Treatment Goals Patient/Caregiver Goals Leak less, reduce urgency, both daytime and nighttime Prior Functional Status Baseline Function- ADL's Modified Independent Baseline Function- Mobility Modified Independent Current Functional Impairments (Reported) Functional Limitations- ADL's Voids very frequently at night , urgency makes him leak, has been using Depends for the past few years. Functional Limitations- Recreation/ Avoids social activities where Hobbies he doesn't have access to a bathroom Personal Factors Other Personal Factors That May Effect Parkinson's diagnosed in 2015 Therapy/Recovery sx started 2011-4 per , TIA in 2017, Meningioma with surgical resection in 2014, PT-OP-C Subjective Start: 08/08/19 08:09 Freq: Status: Active Protocol: Document 08/22/19 14:30 AMB (Rec: 08/23/19 17:55 AMB [email or web address]) OP-PT Subjective Patient Comments Patient Comments Pt states his meds are continuing to help. Getting up about 1-2x/night now. Has been working on urge reduction and that is a work in progress. PT-OP-I Pelvic Floor Start: 08/08/19 08:09 Freq: Status: Active Protocol: Document 08/08/19 13:45 AMB (Rec: 08/08/19 15:55 AMB [email or web address]) Pelvic Floor Assessment Urine Urinary Symptoms Urge Sensation Leakage Size Medium Leakage Cause Urge Voiding Frequency every hour Nocturia every 15 min to 4-5x/night Urine Pad Type Depends Bowel Bowel Symptoms Constipation Bowel Movement Frequency every other day [place] Stool Chart Type 1-7 1 Pelvic Clock Inter-Rectal Assessment Pt able to contract, but tends to use gluteals and abs when holding more than 2-3 seconds. Contraction Ability Voluntary Contraction Weak Voluntary Relaxation Moderate Muscle Endurance (Seconds) 5 Number of Quick Contractions In 10 3 Seconds Comments Pelvic Floor Comments 2/5 MMT rectally PT-OP-Q Treatments Start: 08/08/19 08:09 Freq: Status: Active Protocol: Document 08/22/19 14:30 AMB (Rec: 08/23/19 17:55 AMB [email or web address]) Therapeutic Exercises Supine Exercises 2 Supine Exercise Name hamstring, hip flexor, piriformis stretch, LTR Reps/Minutes 1 min ea bilaterally 1 Supine Exercise Name roll in exercises Reps/Minutes 2x10 Comments extensive cues for breath, coordination PT-OP-T Assessment and Plan Start: 08/08/19 08:09 Freq: Status: Active Protocol: Document 08/22/19 14:30 AMB (Rec: 08/23/19 17:55 AMB [email or web address]) Physical Therapy Assessment Assessment Summary Assessment Juliocesar was encouraged to drink more fluids and work on constipation as that can be an irritant. Given stretches as HEP with roll in exercises. Physical Therapy Plan Next Visit Focus/Plan Next Note Type Treatment Note Next Visit Plan Consider NMES next visit, check in with pt on thoughts on sEMG
--- NOTE | 2019-09-03 16:00 | PT.OTN ---
Current Diagnoses Parkinson's disease (09/03/19) Frequency of micturition (09/03/19) Physical Therapy Treatment Note PT-OP-A Visit Information Start: 08/08/19 08:09 Freq: Status: Active Protocol: Document 09/03/19 14:30 AMB (Rec: 09/04/19 08:39 AMB [id number]) Out-Patient Physical Therapy Visit Information Visit Information Visit Type Treatment Note Visit Start Time 14:30 Visit Stop Time 15:15 Total Visit Minutes 45 Visit Number 4 PT-OP-B Current Condition Start: 08/08/19 08:09 Freq: Status: Active Protocol: Document 08/08/19 13:45 AMB (Rec: 08/08/19 16:08 AMB [email or web address]) Current Condition History of Current Condition Onset Date 2014, progressively worsening Current Complaints Urgency, frequency, urge incontinence History of Current Condition Juliocesar attends PT with his [employer]. She provides most of the history, but he is able to express his concerns. Juliocesar has had worsening urge incontinence so now he is leaking throughout the day and voiding urine due to urgency about every hour. On a good night he is getting up to void urine 4-5x/night. He tends to fluid restrict and per his is only drinking about 12 -20 oz of fluid a day. Pt does have triggers that increase his urgency and cause a leak, like driving into the driveway. He denies leaks with cough, sneeze, lifting. Prior Treatments and Tests Post void residual normal per . Prior pelvic PT in [place], focused on external biofeedback. Future Testing and Treatments Planned Cystoscopy in a month Treatment Goals Patient/Caregiver Goals Leak less, reduce urgency, both daytime and nighttime Prior Functional Status Baseline Function- ADL's Modified Independent Baseline Function- Mobility Modified Independent Current Functional Impairments (Reported) Functional Limitations- ADL's Voids very frequently at night , urgency makes him leak, has been using Depends for the past few years. Functional Limitations- Recreation/ Avoids social activities where Hobbies he doesn't have access to a bathroom Personal Factors Other Personal Factors That May Effect Parkinson's diagnosed in 2015 Therapy/Recovery sx started 2011-4 per , TIA in 2018, Meningioma with surgical resection in 2014, PT-OP-C Subjective Start: 08/08/19 08:09 Freq: Status: Active Protocol: Document 09/03/19 14:30 AMB (Rec: 09/04/19 08:39 AMB [id number]) OP-PT Subjective Patient Comments Patient Comments Pt states things are about the same. When he walks into the bathroom is the biggest trigger for him. He does note intermittent stress incontinence, but that is not the biggest problem. PT-OP-I Pelvic Floor Start: 08/08/19 08:09 Freq: Status: Active Protocol: Document 08/08/19 13:45 AMB (Rec: 08/08/19 15:55 AMB [email or web address]) Pelvic Floor Assessment Urine Urinary Symptoms Urge Sensation Leakage Size Medium Leakage Cause Urge Voiding Frequency every hour Nocturia every 15 min to 4-5x/night Urine Pad Type Depends Bowel Bowel Symptoms Constipation Bowel Movement Frequency every other day [place] Stool Chart Type 1-7 1 Pelvic Clock Inter-Rectal Assessment Pt able to contract, but tends to use gluteals and abs when holding more than 2-3 seconds. Contraction Ability Voluntary Contraction Weak Voluntary Relaxation Moderate Muscle Endurance (Seconds) 5 Number of Quick Contractions In 10 3 Seconds Comments Pelvic Floor Comments 2/5 MMT rectally PT-OP-Q Treatments Start: 08/08/19 08:09 Freq: Status: Active Protocol: Document 09/03/19 14:30 AMB (Rec: 09/04/19 08:39 AMB [id number]) Therapeutic Exercises Supine Exercises 2 Supine Exercise Name hamstring, hip flexor, piriformis stretch, LTR Reps/Minutes 1 min ea bilaterally Standing Exercises 1 Standing Exercise Name Pec stretch in doorway Reps/Minutes 30x3 Self-Care/Home Management Treatment Education Other Education Educated pt on continued urgency reduction. Pt has a tendency to wait about 2 hours and then has a lot of leaks. Asked to practice going into the bathroom when he doesn't need to to practice seeing trigger of bathroom when not urgent. Then decrease amount of time between voids, and also increase pad changes throughout the day. PT-OP-T Assessment and Plan Start: 08/08/19 08:09 Freq: Status: Active Protocol: Document 09/03/19 14:30 AMB (Rec: 09/04/19 08:39 AMB [id number]) Physical Therapy Plan Frequency and Duration Frequency of Treatment 1x/Week Duration of Treatment 8 weeks Plan of Care Start Date 08/08/19 Plan of Care End Date 10/03/19 Next Visit Focus/Plan Next Note Type Treatment Note Next Visit Plan Reassess how pt is doing with increasing urinary frequency to decrease urgency/leaking.
--- NOTE | 2019-09-11 16:00 | PT.OTN ---
Current Diagnoses Parkinson's disease (09/11/19) Frequency of micturition (09/11/19) Physical Therapy Treatment Note PT-OP-A Visit Information Start: 08/08/19 08:09 Freq: Status: Active Protocol: Document 09/11/19 14:30 AMB (Rec: 09/12/19 08:36 AMB [id number]) Out-Patient Physical Therapy Visit Information Visit Information Visit Type Treatment Note Visit Start Time 14:30 Visit Stop Time 15:15 Total Visit Minutes 45 Visit Number 5 PT-OP-B Current Condition Start: 08/08/19 08:09 Freq: Status: Active Protocol: Document 08/08/19 13:45 AMB (Rec: 08/08/19 16:08 AMB [id number]) Current Condition History of Current Condition Onset Date 2014, progressively worsening Current Complaints Urgency, frequency, urge incontinence History of Current Condition Juliocesar attends PT with his Quita. She provides most of the history, but he is able to express his concerns. Juliocesar has had worsening urge incontinence so now he is leaking throughout the day and voiding urine due to urgency about every hour. On a good night he is getting up to void urine 4-5x/night. He tends to fluid restrict and per his is only drinking about 12 -20 oz of fluid a day. Pt does have triggers that increase his urgency and cause a leak, like driving into the driveway. He denies leaks with cough, sneeze, lifting. Prior Treatments and Tests Post void residual normal per . Prior pelvic PT in [place], focused on external biofeedback. Future Testing and Treatments Planned Cystoscopy in a month Treatment Goals Patient/Caregiver Goals Leak less, reduce urgency, both daytime and nighttime Prior Functional Status Baseline Function- ADL's Modified Independent Baseline Function- Mobility Modified Independent Current Functional Impairments (Reported) Functional Limitations- ADL's Voids very frequently at night , urgency makes him leak, has been using Depends for the past few years. Functional Limitations- Recreation/ Avoids social activities where Hobbies he doesn't have access to a bathroom Personal Factors Other Personal Factors That May Effect Parkinson's diagnosed in 2015 Therapy/Recovery sx started 2011-4 per , TIA in 2017, Meningioma with surgical resection in 2014, PT-OP-C Subjective Start: 08/08/19 08:09 Freq: Status: Active Protocol: Document 09/11/19 14:30 AMB (Rec: 09/12/19 08:36 AMB [id number]) OP-PT Subjective Patient Comments Patient Comments Pt states he didn't really try to go to the bathroom more to reduce urge, because he doesn 't feel like he leaks much volume when he goes to the bathroom. However his questions how his briefs are getting so soiled if he is only leaking a small amount. She feels like she is having to promote any changes in his habits, which is challenging. PT-OP-I Pelvic Floor Start: 08/08/19 08:09 Freq: Status: Active Protocol: Document 08/08/19 13:45 AMB (Rec: 08/08/19 15:55 AMB [id number]) Pelvic Floor Assessment Urine Urinary Symptoms Urge Sensation Leakage Size Medium Leakage Cause Urge Voiding Frequency every hour Nocturia every 15 min to 4-5x/night Urine Pad Type Depends Bowel Bowel Symptoms Constipation Bowel Movement Frequency every other day Duarte Stool Chart Type 1-7 1 Pelvic Clock Inter-Rectal Assessment Pt able to contract, but tends to use gluteals and abs when holding more than 2-3 seconds. Contraction Ability Voluntary Contraction Weak Voluntary Relaxation Moderate Muscle Endurance (Seconds) 5 Number of Quick Contractions In 10 3 Seconds Comments Pelvic Floor Comments 2/5 MMT rectally PT-OP-Q Treatments Start: 08/08/19 08:09 Freq: Status: Active Protocol: Document 09/11/19 14:30 AMB (Rec: 09/12/19 08:36 AMB [id number]) Therapeutic Exercises Sidelying Exercises 1 Sidelying Exercise Name 10 second holds with NMES Reps/Minutes 15 min Comments with focus on breath and avoiding over use of TA Self-Care/Home Management Treatment Education Other Education Continued educating pt/ on urge vs stress incontinence. Role of habits and bladder retraining on bladder function . Overall showing brain success with experiencing a trigger. PT-OP-T Assessment and Plan Start: 08/08/19 08:09 Freq: Status: Active Protocol: Document 09/11/19 14:30 AMB (Rec: 09/12/19 08:36 AMB [id number]) Physical Therapy Assessment Assessment Summary Assessment Juliocesar so far hasn't noticed more of a change, but his is still hopeful. She states his frequency is about every 2 hours during the day, and she does notice him concentrating on trying to reduce the urge. She does wish that he would change his brief more frequently. Physical Therapy Plan Next Visit Focus/Plan Next Note Type Treatment Note Next Visit Plan Continue with strengthening with NMES
--- NOTE | 2020-01-16 09:17 | PT.OPDS ---
Current Diagnoses Parkinson's disease (09/11/19) Frequency of micturition (09/11/19) Visit Care Team Role Provider Type Guzman Guaman MD Primary Care Provider Physician Specialty: Family Practice Address: [address] [place], [address] Email: [email or web address] Jasper Mead MD Attending Provider Non-Staff Specialty: Internal Medicine Address: [facility] [place], [address] Fax: Email: Visit Number Visit Number 5 Discharge Summary PT-OP-B Current Condition Start: 08/08/19 08:09 Freq: Status: Active Protocol: Document 08/08/19 13:45 AMB (Rec: 08/08/19 16:08 AMB [id number]) Current Condition History of Current Condition Onset Date 2014, progressively worsening Current Complaints Urgency, frequency, urge incontinence History of Current Condition Juliocesar attends PT with his Quita. She provides most of the history, but he is able to express his concerns. Juliocesar has had worsening urge incontinence so now he is leaking throughout the day and voiding urine due to urgency about every hour. On a good night he is getting up to void urine 4-5x/night. He tends to fluid restrict and per his is only drinking about 12 -20 oz of fluid a day. Pt does have triggers that increase his urgency and cause a leak, like driving into the driveway. He denies leaks with cough, sneeze, lifting. Prior Treatments and Tests Post void residual normal per . Prior pelvic PT in [place], focused on external biofeedback. Future Testing and Treatments Planned Cystoscopy in a month Treatment Goals Patient/Caregiver Goals Leak less, reduce urgency, both daytime and nighttime Prior Functional Status Baseline Function- ADL's Modified Independent Baseline Function- Mobility Modified Independent Current Functional Impairments (Reported) Functional Limitations- ADL's Voids very frequently at night , urgency makes him leak, has been using Depends for the past few years. Functional Limitations- Recreation/ Avoids social activities where Hobbies he doesn't have access to a bathroom Personal Factors Other Personal Factors That May Effect Parkinson's diagnosed in 2016 Therapy/Recovery sx started 2011-4 per , TIA in 2018, Meningioma with surgical resection in 2015, PT-OP-C Subjective Start: 08/08/19 08:09 Freq: Status: Active Protocol: Document 09/11/19 14:30 AMB (Rec: 09/12/19 08:36 AMB [id number]) OP-PT Subjective Patient Comments Patient Comments Pt states he didn't really try to go to the bathroom more to reduce urge, because he doesn 't feel like he leaks much volume when he goes to the bathroom. However his questions how his briefs are getting so soiled if he is only leaking a small amount. She feels like she is having to promote any changes in his habits, which is challenging. PT-OP-I Pelvic Floor Start: 08/08/19 08:09 Freq: Status: Active Protocol: Document 08/08/19 13:45 AMB (Rec: 08/08/19 15:55 AMB [id number]) Pelvic Floor Assessment Urine Urinary Symptoms Urge Sensation Leakage Size Medium Leakage Cause Urge Voiding Frequency every hour Nocturia every 15 min to 4-5x/night Urine Pad Type Depends Bowel Bowel Symptoms Constipation Bowel Movement Frequency every other day Quinton Stool Chart Type 1-7 1 Pelvic Clock Inter-Rectal Assessment Pt able to contract, but tends to use gluteals and abs when holding more than 2-3 seconds. Contraction Ability Voluntary Contraction Weak Voluntary Relaxation Moderate Muscle Endurance (Seconds) 5 Number of Quick Contractions In 10 3 Seconds Comments Pelvic Floor Comments 2/5 MMT rectally PT-OP-T Assessment and Plan Start: 08/08/19 08:09 Freq: Status: Active Protocol: Document 01/16/20 09:16 MB (Rec: 01/16/20 09:17 MB [id number]) Physical Therapy Plan Discharge Physical Therapy Discharge Reasons Patient Request Discharge Comments Pt calls to state that he does not yet want to return to therapy after COVID. Will d/c PT.
== END 2020-01-21 09:09 ==
LOC: PHYS 14:30
PROVIDERS: PCP Family Medicine; Visit Provider Psychiatry & Neurology Neurology
DX: G20 Parkinson's disease (principal); R35.0 Frequency of micturition
CPT/HCPCS: 97110; 97112; 97162; 97535

== ENCOUNTER → 2019-11-21 08:59 | Outpatient (CLI) | payer MEDICARE, OTHER, SELFPAY ==
--- NOTE | 2019-11-21 09:02 | DI.US.S_ITS ---
PROCEDURE: US PERIPH VENOUS LOW EXTREM LT INDICATIONS: EDEMA TECHNIQUE: Real-time imaging, as well as color and pulse Doppler interrogation, were performed of the lower extremity deep veins from the inguinal ligament to the popliteal fossa. COMPARISON: None. FINDINGS: The common femoral, femoral and popliteal veins are normally compressible, and free of intraluminal thrombus. Color and pulse Doppler demonstrate normal phasic intraluminal flow. There is normal augmentation response to distal compression maneuver. Reilly cyst measuring 3.9 x 1.4 x 3.0 cm IMPRESSION: No evidence of deep venous thrombosis. Reilly's cyst. Dictated by: Reese Bond M.D. on 11/21/2019 at 10:03 Approved by: Reese Bond M.D. on 11/21/2019 at 10:06
[2019-11-21 10:43] LABS: Add Manual Diff / Slide Review NO; Basophils Absolute Auto 0 /uL (0-100); Basophils Percent Auto 0.7 % (0-2); Eosinophils Absolute Auto 200 /uL (0-450); Eosinophils Percent Auto 3.6 % (2-4); Hematocrit 41.5 % (41-53); Hemoglobin 14.3 g/dL (13.5-17.5); Lymphocytes Absolute Auto 1800 /uL (1100-4500); Lymphocytes Percent Auto 34.4 % (25-40); Mean Corpuscular HGB Conc 34.4 % (30-36); Mean Corpuscular Hemoglobin 31.9 PG (26-34); Mean Corpuscular Volume 92.7 fL (80-100); Monocytes Absolute Auto 400 /uL (0-900); Neutrophils Absolute Auto 2700 /uL (1500-7000); Neutrophils Percent Auto 53.3 % (50-75); Platelet Count 126 X10^3/uL (150-400); Red Blood Cell Count 4.48 X10^6/uL (4.5-5.9); Red Cell Distribution Width 12.9 % (11.6-14.8); White Blood Cell Count 5.1 X10^3/uL (4.5-11.0)
[2019-11-21 10:55] LABS: Alanine Aminotransferase 5 IU/L (<50); Albumin 4.1 g/dL (3.5-5.0); Albumin Globulin Ratio 1.4 (1.0-2.8); Alkaline Phosphatase 56 U/L (38-126); Aspartate Aminotransferase 34 IU/L (17-59); BUN Creatinine Ratio 25.3 (6-22); Bilirubin Total 0.7 mg/dL (0.2-1.3); Blood Urea Nitrogen 22 mg/dL (9-20); Calcium 9.1 mg/dL (8.4-10.2); Carbon Dioxide 27 mmol/L (22-32); Chloride 104 mmol/L (98-107); Cholesterol 99 mg/dL (140-199); Estimated Glomerular Filt Rate > 60.0 mL/min (>60); Globulin 2.9 g/dL (1.7-4.1); Glucose 116 mg/dL (80-110); HDL Cholesterol 39 mg/dL (40-60); HEMOLYSIS < 15 (0-50); LDL Cholesterol Calculated 51 mg/dL (<100); Potassium 4.3 mmol/L (3.4-5.1); Sodium 140 mmol/L (137-145); Triglycerides 43 mg/dL (35-150)
[2019-11-21 10:57] LABS: NT-proBNP (BNP-Adult 18+) 74 pg/mL (<450)
== END ==
PROVIDERS: PCP Family Medicine; Referring Provider Family Medicine; Visit Provider Family Medicine
DX: R60.0 Localized edema (principal); M71.22 Synovial cyst of popliteal space [Baker], left knee; E78.5 Hyperlipidemia, unspecified; Z79.899 Other long term (current) drug therapy
CPT/HCPCS: 36415; 80053; 80061; 83880; 84443; 85025; 93971

== ENCOUNTER → 2020-08-22 11:11 | Outpatient (CLI) | payer MEDICARE, OTHER, SELFPAY ==
[2020-08-22 11:44] LABS: Bacteria Urine None Seen; RBC Urine None Seen (0-5/HPF); WBC Urine None Seen (0-5/HPF)
[2020-08-22 11:48] LABS: Appearance Urine UA CLEAR; Bilirubin Urine UA NEGATIVE (NEGATIVE); Color Urine UA YELLOW; Glucose Urine UA NEGATIVE (Negative); Ketones Urine UA NEGATIVE (NEGATIVE); Leukocyte Esterase Urine UA NEGATIVE (NEGATIVE); Nitrite Urine UA NEGATIVE (Negative); Occult Blood Urine UA NEGATIVE (Negative); Protein Urine UA NEGATIVE (Negative); Specific Gravity Urine UA 1.015 (1.000-1.035); Urobilinogen Urine UA 0.2 E.U./dL (0.2)
[2020-08-22 12:10] LABS: Culture Indicated Urine Cult Not Indicated; Urine Comments Microscopic Normal
== END ==
PROVIDERS: PCP Family Medicine; Referring Provider Nurse Practitioner; Visit Provider Nurse Practitioner
DX: G20 Parkinson's disease (principal)
CPT/HCPCS: 81001

== ENCOUNTER 2020-11-19 14:30 | Outpatient (RCR) | payer MEDICARE, OTHER, SELFPAY ==
--- NOTE | 2020-11-05 16:09 | PT.OIE ---
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) Measles Meningioma (09/09/14) Mumps Parkinson's disease (05/25/17) Right inguinal hernia RLS (restless legs syndrome) (2012) Rubella TIA (transient ischemic attack) Vertigo (2013) Past Surgical History (Last Reviewed 10/15/18 @ 12:04 by Lisa Masterson DO) Anesthesia H/O removal of cyst (~1999) History of cataract removal with insertion of prosthetic lens (04/2012) History of vasectomy (1969) Status post eye surgery (1988) Status post eye surgery (1989) Status post repair of hydrocele (03/2012) Visit Care Team Role Provider Type Guzman Guaman MD Attending Provider Physician Primary Care Provider Referring Provider Specialty: Family Practice Address: [address] [place] [address] Email: [email or web address] Physical Therapy Initial Evaluation PT-OP-A Visit Information Start: 11/04/20 16:41 Freq: Status: Active Protocol: Document 11/05/20 13:04 MB (Rec: 11/05/20 13:09 MB [id number]) Out-Patient Physical Therapy Visit Information Visit Information Visit Type Initial Evaluation Visit Note Medicare/[facility] Visit Start Time 13:04 Visit Stop Time 14:00 Total Visit Minutes 56 Visit Number 1 Precautions Precautions Fall risk, pt's , Quita, does most of the talking PT-OP-B Current Condition Start: 11/04/20 16:41 Freq: Status: Active Protocol: Document 11/05/20 13:04 MB (Rec: 11/05/20 14:03 MB [id number]) Current Condition History of Current Condition Onset Date August 2020 Current Complaints Left anterior and posterior hip sharp pain with sitting History of Current Condition Over the past 6 months, pt's activity level has declined. He was walking daily with and performing PD exercises up until the fall. In August , pt started to have left hip pain started when he was sitting more in his posterior tilted desk-type chair. He has had decreased left shoulder range of motion for a while. states that he has trouble lifting his left arm to dress. Pt is able to do his own ADLs. PT asks pt pain rating and he reports 5/10 pain. states that pt's PD symptoms are less motor and more like apathy and cognition . Memory is a problem. 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 reported that he eventually felt that he didn't see the point of doing speech exercises. His neurologist has been told about these problems. 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 Pt denies current dizziness. He states he does feel occ light-headedness when he goes to get up. Treatment Goals Patient/Caregiver Goals To decrease pain PT-OP-C Subjective Start: 11/04/20 16:41 Freq: Status: Active Protocol: Document 11/05/20 13:04 MB (Rec: 11/05/20 13:09 MB [id number]) OP-PT Subjective Patient Comments Patient Comments See history of current condition PT-OP-D Balance Start: 11/04/20 16:41 Freq: Status: Active Protocol: Document 11/05/20 13:04 MB (Rec: 11/05/20 15:46 MB [id number]) OP-PT Balance Assessment Sitting Balance Static Sitting Balance Ability Normal Dynamic Sitting Balance Ability Good Sitting Balance Comments UE support for scooting in chair and sit to stands Standing Balance Static Standing Balance Ability Good Dynamic Standing Balance Ability Good Standing Balance Comments Pt stands with flexed posture at knees and functional leg length difference. Romberg EO and EC 30 sec Caruso Fall Scale Copyright Permission PT-OP-G Mobility & Gait Start: 11/04/20 16:41 Freq: Status: Active Protocol: Document 11/05/20 13:04 MB (Rec: 11/05/20 16:09 MB [id number]) OP Gait Assessment Gait Gait Assistance Required: Independent Distance (Feet) 75 Able to Maintain Weight Bearing Status Yes During Gait Assistive Devices Assistive Device None Orthotic/Prosthetic Devices or Brace: No Gait Deviations General Gait Pattern Antalgic,Decreased Stride Length,Decreased Feet Clearance,Flexed Trunk Factors Limiting Gait Function Factors Limiting Gait Function Decreased Activity Tolerance, Decreased Strength,Pain Comments Gait Comments Pt posture is forward and flexed with pronounced B knee flexion and pelvic obliquities that contribute to functional leg length different with right LE functionally shorter with gait. His gait is slow and with narrow TO and decreased foot clearance. PT-OP-J Posture/Palpation/Skin Start: 11/04/20 16:41 Freq: Status: Active Protocol: Document 11/05/20 13:04 MB (Rec: 11/05/20 16:09 MB [id number]) Posture Evaluation Comments Posture Comments Standing posture with shoes on : forward, flexed posture with left tragus 3 in front of left AC joint, increased thoracic flexion and decreased lumbar lordosis, B pronounced knee flexion in standing and left iliac crest 1 higher than the right Skin Assessment Other Assessments Skin Assessment Comments LLE edematous to palpation PT-OP-K Range of Motion Start: 11/04/20 16:41 Freq: Status: Active Protocol: Document 11/05/20 13:04 MB (Rec: 11/05/20 16:09 MB [id number]) Shoulder Goniometric Range of Motion Shoulder ROM Limitations Comments B shoulders with decreased AROM flexion and abduction in sitting, worse on the left with right shoulder flexion and abduction 90 deg and left shoulder flexion and abduction 70 deg Hip Goniometric Range of Motion Hip ROM Limitations Comments Pt does not clear B thighs off chair when asked: some delayed processing and execution of mobility Knee Goniometric Range of Motion Knee ROM Limitations Comments B knees with functional extension in sitting but do not reach full extension in standing PT-OP-M Strength Start: 11/04/20 16:41 Freq: Status: Active Protocol: Document 11/05/20 13:04 MB (Rec: 11/05/20 16:09 MB [id number]) Knee Strength Knee Manual Muscle Testing Left Flexion (S2) 3+ Fair+ Extension (L3) 4 Good Right Flexion (S2) 4 Good Extension (L3) 5 Normal Ankle/Foot Strength Ankle and Foot Manual Muscle Testing Left Dorsiflexion (L4) 3+ Fair+ Right Dorsiflexion (L4) 4 Good Toe Strength Toe Manual Muscle Testing Left Great Toe Extension 3+ Fair+ Right Great Toe Extension 4 Good PT-OP-Q Treatments Start: 11/04/20 16:41 Freq: Status: Active Protocol: Document 11/05/20 13:04 MB (Rec: 11/05/20 16:09 MB [id number]) Self-Care/Home Management Treatment Education Other Education Extensive education to pt and : proper sleeping position with pillow between legs if side lying and under knees if supine, towel roll under pillow for cervical support, need to change chair he is sitting in every hour and go to toilt to work on urinary continence and dry depends every two hours. Extensive ed in PT's feeling that since his pain started when he became more sedentary and given his position sitting in bucket seat type of position in reclined back desk chair and that his pain is not worse with mobility, that mobility is a huge briones to decreasing pain. 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 Plan for pelvic realignment and manual work next treatment date, assess orthostatics and then initiate 6MWT and balance test in future treatments. If he starts moving and does well with PT, could try BIG in the future. PT-OP-T Assessment and Plan Start: 11/04/20 16:41 Freq: Status: Active Protocol: Document 11/05/20 13:04 MB (Rec: 11/05/20 16:09 MB [id number]) Physical Therapy Assessment Rehab Potential Rehabilitation Potential Fair Evaluation Complexity Number of Personal Factors/Comorbidities 3 or More Number of Body Systems Impaired 3 Clinical Presentation at Evaluation Evolving Impairments Impairments Balance,Functional Mobility, Gait,Integument,Pain,Posture, ROM,Strength,Transfers Other Impairments Personal factors include hypoverbal, apathy changes per d/t PD that limits pt's overall participation with everything, pt's tendency to use depends all day and not bother to practice toileting. Number of body systems involved include neurological, neurocognitive, musculoskeletal, urinary and integumentary (edema LLE). His clinical presentation is evolving in setting of PD. Other Concerns Fall Risk Yes Goals 4 Electro Mechanical Designer Goal (LTG) Pt will be compliant with home training including changing chairs every hour, toileting every two hours, daily walks with and progressive exercises including sit to stands, pelvic realignment and self-massage to improve function and pain by 01/05/21. LTG Duration 8 weeks Three Electro Mechanical Designer Goal (LTG) Pt will gait train at least 1300 feet in 6 minutes without AD to improve community ambulation by 01/05/21. LTG Duration 8 weeks Two Electro Mechanical Designer Goal (LTG) Pt will perform WNLs on a standardized balance test to decrease fall risk by 01/05/21. LTG Duration 8 weeks One Electro Mechanical Designer Goal (LTG) Pt will perform at least 10 reps sit to stand without UE support in 30 sec to improve functional strength with transfers by 01/05/21. LTG Duration 8 weeks Assessment Summary Assessment Pt is an 84 y/o male presenting with postural changes, left greater than right UE and LE weakness and decreased ROM, pelvic obliquities, and poor gait in setting of recent sedentary lifestyle changes and increasing left hip pain. PT feels that a lot of pt's pain is due to lifestyle changes and sitting in bucket-type position in reclining desk chair most of the day. His left iliac crest is 1 higher than the right and his spinal posture and LE positioning in standing are also very poor. He presents with LLE edema that states is worse since he has been more sedentary. He has a history of PD, left temporal tumor and craniotomy, cardiac disease and TIA with possible CVA. states that pt's affect is apathic d/t PD and that it has not changed over the past months (it has not worsened). Apathy/not wanting to con't with speech therapy, toileting regularly, getting up, going for walks has been a barrier to overall health and mobility . This will be a barrier to PT . 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 Provided handout today with his two current assignments. is concerned about their dynamic at home if she has to be the taskmaster for his compliance. Will con't to monitor. He will benefit from PT for pelvic realignment, manual work, gait and balance and other functional activities and ongoing instruction of how he can do more at home to feel better. PT is hopeful that his pain will be a motivating factor to be compliant. Physical Therapy Plan Frequency and Duration Frequency of Treatment 2x/Week Duration of Treatment 8 weeks Plan of Care Start Date 11/05/20 Plan of Care End Date 01/05/21 Therapeutic Interventions Therapeutic Interventions Balance Training,Canalithic Repositioning,Gait Training, Home Exercise Program,Joint Mobilizations,Manual Therapy, Neuromuscular Re-education, Patient/Caregiver Education, Self-Care/Home Management,Soft Tissue Mobilization,Taping, Therapeutic Activities, Therapeutic Exercises Modalities Cold Pack/Ice Massage,Hot Packs Next Visit Focus/Plan Next Note Type Treatment Note Next Visit Plan Pelvic realignment and manual work, check orthostatics
--- NOTE | 2020-11-06 15:41 | PT.OTN ---
Current Diagnoses Pain in left shoulder (11/06/20) Pain in left hip (11/06/20) Physical Therapy Treatment Note PT-OP-A Visit Information Start: 11/04/20 16:41 Freq: Status: Active Protocol: Document 11/06/20 09:47 MB (Rec: 11/06/20 10:31 MB [id number]) Out-Patient Physical Therapy Visit Information Visit Information Visit Type Aquatic Treatment Note Visit Note Medicare/[facility] Visit Start Time 09:47 Visit Stop Time 10:27 Total Visit Minutes 40 Visit Number 2 Precautions Precautions Fall risk, pt's , Quita, does most of the talking PT-OP-B Current Condition Start: 11/04/20 16:41 Freq: Status: Active Protocol: Document 11/05/20 13:04 MB (Rec: 11/05/20 14:03 MB [id number]) Current Condition History of Current Condition Onset Date August 2020 Current Complaints Left anterior and posterior hip sharp pain with sitting History of Current Condition Over the past 6 months, pt's activity level has declined. He was walking daily with and performing PD exercises up until the fall. In August , pt started to have left hip pain started when he was sitting more in his posterior tilted desk-type chair. He has had decreased left shoulder range of motion for a while. states that he has trouble lifting his left arm to dress. Pt is able to do his own ADLs. PT asks pt pain rating and he reports 5/10 pain. states that pt's PD symptoms are less motor and more like apathy and cognition . Memory is a problem. 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 reported that he eventually felt that he didn't see the point of doing speech exercises. His neurologist has been told about these problems. 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 Pt denies current dizziness. He states he does feel occ light-headedness when he goes to get up. Treatment Goals Patient/Caregiver Goals To decrease pain PT-OP-C Subjective Start: 11/04/20 16:41 Freq: Status: Active Protocol: Document 11/06/20 09:47 MB (Rec: 11/06/20 10:31 MB [id number]) OP-PT Subjective Patient Comments Patient Comments Pt has no questions left over from evaluation. PT-OP-D Balance Start: 11/04/20 16:41 Freq: Status: Active Protocol: Document 11/05/20 13:04 MB (Rec: 11/05/20 15:46 MB [id number]) OP-PT Balance Assessment Sitting Balance Static Sitting Balance Ability Normal Dynamic Sitting Balance Ability Good Sitting Balance Comments UE support for scooting in chair and sit to stands Standing Balance Static Standing Balance Ability Good Dynamic Standing Balance Ability Good Standing Balance Comments Pt stands with flexed posture at knees and functional leg length difference. Romberg EO and EC 30 sec Caruso Fall Scale Copyright Permission PT-OP-G Mobility & Gait Start: 11/04/20 16:41 Freq: Status: Active Protocol: Document 11/05/20 13:04 MB (Rec: 11/05/20 16:09 MB [id number]) OP Gait Assessment Gait Gait Assistance Required: Independent Distance (Feet) 75 Able to Maintain Weight Bearing Status Yes During Gait Assistive Devices Assistive Device None Orthotic/Prosthetic Devices or Brace: No Gait Deviations General Gait Pattern Antalgic,Decreased Stride Length,Decreased Feet Clearance,Flexed Trunk Factors Limiting Gait Function Factors Limiting Gait Function Decreased Activity Tolerance, Decreased Strength,Pain Comments Gait Comments Pt posture is forward and flexed with pronounced B knee flexion and pelvic obliquities that contribute to functional leg length different with right LE functionally shorter with gait. His gait is slow and with narrow TO and decreased foot clearance. PT-OP-J Posture/Palpation/Skin Start: 11/04/20 16:41 Freq: Status: Active Protocol: Document 11/05/20 13:04 MB (Rec: 11/05/20 16:09 MB [id number]) Posture Evaluation Comments Posture Comments Standing posture with shoes on : forward, flexed posture with left tragus 3 in front of left AC joint, increased thoracic flexion and decreased lumbar lordosis, B pronounced knee flexion in standing and left iliac crest 1 higher than the right Skin Assessment Other Assessments Skin Assessment Comments LLE edematous to palpation PT-OP-K Range of Motion Start: 11/04/20 16:41 Freq: Status: Active Protocol: Document 11/05/20 13:04 MB (Rec: 11/05/20 16:09 MB [id number]) Shoulder Goniometric Range of Motion Shoulder ROM Limitations Comments B shoulders with decreased AROM flexion and abduction in sitting, worse on the left with right shoulder flexion and abduction 90 deg and left shoulder flexion and abduction 70 deg Hip Goniometric Range of Motion Hip ROM Limitations Comments Pt does not clear B thighs off chair when asked: some delayed processing and execution of mobility Knee Goniometric Range of Motion Knee ROM Limitations Comments B knees with functional extension in sitting but do not reach full extension in standing PT-OP-M Strength Start: 11/04/20 16:41 Freq: Status: Active Protocol: Document 11/05/20 13:04 MB (Rec: 11/05/20 16:09 MB [id number]) Knee Strength Knee Manual Muscle Testing Left Flexion (S2) 3+ Fair+ Extension (L3) 4 Good Right Flexion (S2) 4 Good Extension (L3) 5 Normal Ankle/Foot Strength Ankle and Foot Manual Muscle Testing Left Dorsiflexion (L4) 3+ Fair+ Right Dorsiflexion (L4) 4 Good Toe Strength Toe Manual Muscle Testing Left Great Toe Extension 3+ Fair+ Right Great Toe Extension 4 Good PT-OP-Q Treatments Start: 11/04/20 16:41 Freq: Status: Active Protocol: Document 11/06/20 09:47 MB (Rec: 11/06/20 10:31 MB [id number]) Therapeutic Activity Therapeutic Activity Bed mobility Comments Pt is very slow with sit, side lying and rolling to back with head of plinth raised a small amount and pillow with towel roll support for neck. Pt requires light manual assist to scoot hips to lie flat Manual Therapy Treatment Other Other Manual Treatments Pt hook lying with head of plinth elevated, pillow and towel roll support at neck, legs elevated, towel under right arm to support right shoulder: STM and positional release: B rectus femoris, vastus lateralist, QL and upper traps. More tension in left QL and quads and more tension in right upper traps Self-Care/Home Management Treatment Education Other Education Use of knee high compression hose on the left and dependent to don in hook lying today. Increase non-caffeinated fluid intake, goal to increase mobility and gait next PT treatment and will start pelvic realignment exercises and more manual work in future PT treatments, start with chair changing today and toileting every half hour PT-OP-T Assessment and Plan Start: 11/04/20 16:41 Freq: Status: Active Protocol: Document 11/06/20 09:47 MB (Rec: 11/06/20 10:31 MB [id number]) Physical Therapy Assessment Rehab Potential Rehabilitation Potential Fair Evaluation Complexity Number of Personal Factors/Comorbidities 3 or More Number of Body Systems Impaired 3 Clinical Presentation at Evaluation Evolving Impairments Impairments Balance,Functional Mobility, Gait,Integument,Pain,Posture, ROM,Strength,Transfers Other Impairments Personal factors include hypoverbal, apathy changes per d/t PD that limits pt's overall participation with everything, pt's tendency to use depends all day and not bother to practice toileting. Number of body systems involved include neurological, neurocognitive, musculoskeletal, urinary and integumentary (edema LLE). His clinical presentation is evolving in setting of PD. Other Concerns Fall Risk Yes Goals 4 Fpc Goal (LTG) Pt will be compliant with home training including changing chairs every hour, toileting every two hours, daily walks with and progressive exercises including sit to stands, pelvic realignment and self-massage to improve function and pain by 01/05/21. LTG Duration 8 weeks Three Almond Sorter Goal (LTG) Pt will gait train at least 1300 feet in 6 minutes without AD to improve community ambulation by 01/05/21. LTG Duration 8 weeks Two Fpc Goal (LTG) Pt will perform WNLs on a standardized balance test to decrease fall risk by 01/05/21. LTG Duration 8 weeks One Fpc Goal (LTG) Pt will perform at least 10 reps sit to stand without UE support in 30 sec to improve functional strength with transfers by 01/05/21. LTG Duration 8 weeks Assessment Summary Assessment Bed mobility is very slow today and he requires cues and increased time for scooting and positioning on the table. His right shoulder bothers him and is very stiff at GH and AC joints and has trouble resting passive with arm and head and neck support. Postural changes are likely the biggest contributor to these. He responds well to myofascial release and his left iliac crest is much more level to the right after treatment (was higher pre- treatment). Will con't manual PT, education for home including self-care and some exercises and gait and mobility training. Physical Therapy Plan Frequency and Duration Frequency of Treatment 2x/Week Duration of Treatment 8 weeks Plan of Care Start Date 11/05/20 Plan of Care End Date 01/05/21 Therapeutic Interventions Therapeutic Interventions Balance Training,Canalithic Repositioning,Gait Training, Home Exercise Program,Joint Mobilizations,Manual Therapy, Neuromuscular Re-education, Patient/Caregiver Education, Self-Care/Home Management,Soft Tissue Mobilization,Taping, Therapeutic Activities, Therapeutic Exercises Modalities Cold Pack/Ice Massage,Hot Packs Next Visit Focus/Plan Next Note Type Treatment Note Next Visit Plan Check orthostatics when time. Next treatment: 6MWT and balance testing, consider recumbent stepper, consider checking sit to stands and could add to HEP. Limit HEP exercises given Every other treatment: consider manual work in hook lying with support and pelvic realignment exercise instruction
--- NOTE | 2020-11-09 13:48 | PT.OTN ---
Current Diagnoses Pain in left shoulder (11/09/20) Pain in left hip (11/09/20) Physical Therapy Treatment Note PT-OP-A Visit Information Start: 11/04/20 16:41 Freq: Status: Active Protocol: Document 11/09/20 13:00 SP (Rec: 11/09/20 16:10 SP [id number]) Out-Patient Physical Therapy Visit Information Visit Information Visit Type Treatment Note Visit Note Medicare/[place] attended tx, more of an observer. Vital taken post gait: BP 143/78, HR 70, 96% SaO2. (did not assess ortho's , no report dizziness during 6MWT. Visit Start Time 13:00 Visit Stop Time 13:48 Total Visit Minutes 48 Visit Number 3 Number of CREDENTIALING MANAGER Visits 1 Evaluation Information Evaluation Date 11/05/20 Precautions Precautions Fall risk, pt's Quita attended tx. PT-OP-B Current Condition Start: 11/04/20 16:41 Freq: Status: Active Protocol: Document 11/05/20 13:04 MB (Rec: 11/05/20 14:03 MB [id number]) Current Condition History of Current Condition Onset Date August 2020 Current Complaints Left anterior and posterior hip sharp pain with sitting History of Current Condition Over the past 6 months, pt's activity level has declined. He was walking daily with and performing PD exercises up until the fall. In August , pt started to have left hip pain started when he was sitting more in his posterior tilted desk-type chair. He has had decreased left shoulder range of motion for a while. states that he has trouble lifting his left arm to dress. Pt is able to do his own ADLs. PT asks pt pain rating and he reports 5/10 pain. states that pt's PD symptoms are less motor and more like apathy and cognition . Memory is a problem. 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 reported that he eventually felt that he didn't see the point of doing speech exercises. His neurologist has been told about these problems. 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 Pt denies current dizziness. He states he does feel occ light-headedness when he goes to get up. Treatment Goals Patient/Caregiver Goals To decrease pain PT-OP-C Subjective Start: 11/04/20 16:41 Freq: Status: Active Protocol: Document 11/09/20 13:00 SP (Rec: 11/09/20 16:10 SP [id number]) OP-PT Subjective Patient Comments Patient Comments Pt's stated pt was prett sore after last tx through day and little into next day. PT-OP-D Balance Start: 11/04/20 16:41 Freq: Status: Active Protocol: Document 11/09/20 13:00 SP (Rec: 11/09/20 16:10 SP [id number]) Tinetti Balance Assessment Scoring and Interpretation Interpretation of Scores Low risk for falls (>24) Tinetti Impairment Rating from Composite 0% Impaired (Score 28) Score PT-OP-G Mobility & Gait Start: 11/04/20 16:41 Freq: Status: Active Protocol: Document 11/05/20 13:04 MB (Rec: 11/05/20 16:09 MB [id number]) OP Gait Assessment Gait Gait Assistance Required: Independent Distance (Feet) 75 Able to Maintain Weight Bearing Status Yes During Gait Assistive Devices Assistive Device None Orthotic/Prosthetic Devices or Brace: No Gait Deviations General Gait Pattern Antalgic,Decreased Stride Length,Decreased Feet Clearance,Flexed Trunk Factors Limiting Gait Function Factors Limiting Gait Function Decreased Activity Tolerance, Decreased Strength,Pain Comments Gait Comments Pt posture is forward and flexed with pronounced B knee flexion and pelvic obliquities that contribute to functional leg length different with right LE functionally shorter with gait. His gait is slow and with narrow TO and decreased foot clearance. PT-OP-J Posture/Palpation/Skin Start: 11/04/20 16:41 Freq: Status: Active Protocol: Document 11/05/20 13:04 MB (Rec: 11/05/20 16:09 MB [id number]) Posture Evaluation Comments Posture Comments Standing posture with shoes on : forward, flexed posture with left tragus 3 in front of left AC joint, increased thoracic flexion and decreased lumbar lordosis, B pronounced knee flexion in standing and left iliac crest 1 higher than the right Skin Assessment Other Assessments Skin Assessment Comments LLE edematous to palpation PT-OP-K Range of Motion Start: 11/04/20 16:41 Freq: Status: Active Protocol: Document 11/05/20 13:04 MB (Rec: 11/05/20 16:09 MB [id number]) Shoulder Goniometric Range of Motion Shoulder ROM Limitations Comments B shoulders with decreased AROM flexion and abduction in sitting, worse on the left with right shoulder flexion and abduction 90 deg and left shoulder flexion and abduction 70 deg Hip Goniometric Range of Motion Hip ROM Limitations Comments Pt does not clear B thighs off chair when asked: some delayed processing and execution of mobility Knee Goniometric Range of Motion Knee ROM Limitations Comments B knees with functional extension in sitting but do not reach full extension in standing PT-OP-M Strength Start: 11/04/20 16:41 Freq: Status: Active Protocol: Document 11/05/20 13:04 MB (Rec: 11/05/20 16:09 MB [id number]) Knee Strength Knee Manual Muscle Testing Left Flexion (S2) 3+ Fair+ Extension (L3) 4 Good Right Flexion (S2) 4 Good Extension (L3) 5 Normal Ankle/Foot Strength Ankle and Foot Manual Muscle Testing Left Dorsiflexion (L4) 3+ Fair+ Right Dorsiflexion (L4) 4 Good Toe Strength Toe Manual Muscle Testing Left Great Toe Extension 3+ Fair+ Right Great Toe Extension 4 Good PT-OP-Q Treatments Start: 11/04/20 16:41 Freq: Status: Active Protocol: Document 11/09/20 13:00 SP (Rec: 11/09/20 16:10 SP [id number]) Cardio Equipment Recumbent Stepper (Sci-Fit) Duration (Minutes) 5 Resistance 2.5 Seat Position 12 Other SPM43, miles 0.56 Therapeutic Exercises Standing Exercises sit to stands Reps/Minutes 15 reps in 30 sec Gait Training Gait Activity 6MWT Device Used none Level of Assistance SBA Surface level Distance/Duration 956 ft Treatment Focus assess gait endurance baseline Comments cued tall posture, arm swing, larger stride Neuro Re-Education Treatment Balance Activities frankie stepping Details step over step forwad, step to side Surface floor Equipment 6 hurdles Reps/Duration 3 laps Comments cued feet // side stepping and tall posture throughout, CGA each direction, corner balance Surface floor Equipment wall back, chair front Comments NBOS- EOhead turns, EC 30 sec stable stagger- EO head turns unsteady but not need contact, only 10 sec EC PT-OP-T Assessment and Plan Start: 11/04/20 16:41 Freq: Status: Active Protocol: Document 11/09/20 13:00 SP (Rec: 11/09/20 16:10 SP [id number]) Physical Therapy Assessment Goals 4 Longterm Goal (LTG) Pt will be compliant with home training including changing chairs every hour, toileting every two hours, daily walks with and progressive exercises including sit to stands, pelvic realignment and self-massage to improve function and pain by 01/05/21. LTG Duration 8 weeks Three Longterm Goal (LTG) Pt will gait train at least 1300 feet in 6 minutes without AD to improve community ambulation by 01/05/21. 11/09/20: Baseline 956 ft in 6 min no AD. LTG Duration 8 weeks Two District Claims Manager Goal (LTG) Pt will perform WNLs on a standardized balance test to decrease fall risk by 01/05/21. 11/09/20: Tinetti . FGA Next tx. LTG Duration 8 weeks One District Claims Manager Goal (LTG) Pt will perform at least 10 reps sit to stand without UE support in 30 sec to improve functional strength with transfers by 01/05/21. 11/09/20: Goal MET 13 reps in 30 sec without UE support, cued for hip hinge more for safety contact chair. LTG Duration 8 weeks MET Assessment Summary Assessment Pt tolerated tx well, completed 6 MWT 956 ft, Tinetti assessment 28, sit< > stands 13 reps/ 30 sec. Pt requires cuing for tall posture quad and glut facilitation during corner balance with continual corrections. Pt would benefit from continued LE strengthening and posture education. Physical Therapy Plan Frequency and Duration Frequency of Treatment 2x/Week Duration of Treatment 8 weeks Plan of Care Start Date 11/05/20 Plan of Care End Date 01/05/21 Therapeutic Interventions Therapeutic Interventions Balance Training,Canalithic Repositioning,Gait Training, Home Exercise Program,Joint Mobilizations,Manual Therapy, Neuromuscular Re-education, Patient/Caregiver Education, Self-Care/Home Management,Soft Tissue Mobilization,Taping, Therapeutic Activities, Therapeutic Exercises Modalities Cold Pack/Ice Massage,Hot Packs Next Visit Focus/Plan Next Note Type Treatment Note Next Visit Plan Assess response to 6MWT, Tinetti testing, Scifit, STS's , balance activities. Did not add anything to HEP. Future txs: Check orthostatics when time. Next treatment: Possible assess FGA. Rechecking sit to stand form and could add to HEP. Limit HEP exercises given Every other treatment: consider manual work in hook lying with support and pelvic realignment exercise instruction
--- NOTE | 2020-11-16 15:30 | PT.OTN ---
Current Diagnoses Pain in left shoulder (11/16/20) Pain in left hip (11/16/20) Physical Therapy Treatment Note PT-OP-A Visit Information Start: 11/04/20 16:41 Freq: Status: Active Protocol: Document 11/16/20 14:36 SP (Rec: 11/16/20 16:09 SP [id number]) Out-Patient Physical Therapy Visit Information Visit Information Visit Type Treatment Note Visit Note Medicare/Regence attended tx, provided feedback and was involved in caregiver training giving cues for proper form with ex, comfortable assisting Juliocesar. Visit Start Time 14:36 Visit Stop Time 15:30 Total Visit Minutes 54 Visit Number 4 Number of APPLICATION DEVELOPMENT INTERN Visits 2 Evaluation Information Evaluation Date 11/05/20 Precautions Precautions Fall risk, pt's , Quita attended tx. PT-OP-B Current Condition Start: 11/04/20 16:41 Freq: Status: Active Protocol: Document 11/05/20 13:04 MB (Rec: 11/05/20 14:03 MB [id number]) Current Condition History of Current Condition Onset Date August 2020 Current Complaints Left anterior and posterior hip sharp pain with sitting History of Current Condition Over the past 6 months, pt's activity level has declined. He was walking daily with and performing PD exercises up until the fall. In August , pt started to have left hip pain started when he was sitting more in his posterior tilted desk-type chair. He has had decreased left shoulder range of motion for a while. states that he has trouble lifting his left arm to dress. Pt is able to do his own ADLs. PT asks pt pain rating and he reports 5/10 pain. states that pt's PD symptoms are less motor and more like apathy and cognition . Memory is a problem. He had [employer] HELPER in the past. reported that he eventually felt that he didn't see the point of doing speech exercises. His neurologist has been told about these problems. 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 Pt denies current dizziness. He states he does feel occ light-headedness when he goes to get up. Treatment Goals Patient/Caregiver Goals To decrease pain PT-OP-C Subjective Start: 11/04/20 16:41 Freq: Status: Active Protocol: Document 11/16/20 14:36 SP (Rec: 11/16/20 16:09 SP [id number]) OP-PT Subjective Patient Comments Patient Comments commented they he did well after last tx, no adverse affects. commented that he did really well at last appt, not his norm and sit to stands aren't as easy at home. They were able to go for a walk about 1 block out and back before noticed increased breathing rate since last tx. Pt stated his R shld is bothering him more than L lately which is new and keeping him up at night now. Pt and asked should I see my physician to get xrays. I did ok after last tx. PT-OP-D Balance Start: 11/04/20 16:41 Freq: Status: Active Protocol: Document 11/09/20 13:00 SP (Rec: 11/09/20 16:10 SP [id number]) Tinetti Balance Assessment Scoring and Interpretation Interpretation of Scores Low risk for falls (>24) Tinetti Impairment Rating from Composite 0% Impaired (Score 28) Score PT-OP-G Mobility & Gait Start: 11/04/20 16:41 Freq: Status: Active Protocol: Document 11/05/20 13:04 MB (Rec: 11/05/20 16:09 MB [id number]) OP Gait Assessment Gait Gait Assistance Required: Independent Distance (Feet) 75 Able to Maintain Weight Bearing Status Yes During Gait Assistive Devices Assistive Device None Orthotic/Prosthetic Devices or Brace: No Gait Deviations General Gait Pattern Antalgic,Decreased Stride Length,Decreased Feet Clearance,Flexed Trunk Factors Limiting Gait Function Factors Limiting Gait Function Decreased Activity Tolerance, Decreased Strength,Pain Comments Gait Comments Pt posture is forward and flexed with pronounced B knee flexion and pelvic obliquities that contribute to functional leg length different with right LE functionally shorter with gait. His gait is slow and with narrow TO and decreased foot clearance. PT-OP-J Posture/Palpation/Skin Start: 11/04/20 16:41 Freq: Status: Active Protocol: Document 11/05/20 13:04 MB (Rec: 11/05/20 16:09 MB [id number]) Posture Evaluation Comments Posture Comments Standing posture with shoes on : forward, flexed posture with left tragus 3 in front of left AC joint, increased thoracic flexion and decreased lumbar lordosis, B pronounced knee flexion in standing and left iliac crest 1 higher than the right Skin Assessment Other Assessments Skin Assessment Comments LLE edematous to palpation PT-OP-K Range of Motion Start: 11/04/20 16:41 Freq: Status: Active Protocol: Document 11/05/20 13:04 MB (Rec: 11/05/20 16:09 MB [id number]) Shoulder Goniometric Range of Motion Shoulder ROM Limitations Comments B shoulders with decreased AROM flexion and abduction in sitting, worse on the left with right shoulder flexion and abduction 90 deg and left shoulder flexion and abduction 70 deg Hip Goniometric Range of Motion Hip ROM Limitations Comments Pt does not clear B thighs off chair when asked: some delayed processing and execution of mobility Knee Goniometric Range of Motion Knee ROM Limitations Comments B knees with functional extension in sitting but do not reach full extension in standing PT-OP-M Strength Start: 11/04/20 16:41 Freq: Status: Active Protocol: Document 11/05/20 13:04 MB (Rec: 11/05/20 16:09 MB [id number]) Knee Strength Knee Manual Muscle Testing Left Flexion (S2) 3+ Fair+ Extension (L3) 4 Good Right Flexion (S2) 4 Good Extension (L3) 5 Normal Ankle/Foot Strength Ankle and Foot Manual Muscle Testing Left Dorsiflexion (L4) 3+ Fair+ Right Dorsiflexion (L4) 4 Good Toe Strength Toe Manual Muscle Testing Left Great Toe Extension 3+ Fair+ Right Great Toe Extension 4 Good PT-OP-Q Treatments Start: 11/04/20 16:41 Freq: Status: Active Protocol: Document 11/16/20 14:36 SP (Rec: 11/16/20 16:09 SP [id number]) Therapeutic Exercises Supine Exercises clamshell Supine Exercise Name hooklying- added to HEP Reps/Minutes x10 Comments pain free range- ROM mobility for B hips shoulder ER Supine Exercise Name added to HEP Side bilateral Resistance AAROM Equipment Used dowel Reps/Minutes x10 Comments pain free range, approx 45 deg shoulder flexion Supine Exercise Name BUE together- added to HEP Resistance AAROM Equipment Used dowel Reps/Minutes x10 Comments pain free range- approx 120 deg Standing Exercises pendulum Standing Exercise Name added to HEP Side bilateral Reps/Minutes 1 min total Manual Therapy Treatment Soft Tissue Mobilization STMs to L hip Body Location glut med, TFL, distal piriformis Mobilization Type Strumming Intensity/Depth Superficial Body Position Hooklying Comments tried L sidelying but put to much pressure and created an intolerable deep ache in R shld so returned to hooklying. Joint Mobilizations GH jt Joint R more than L today Direction gentle posterior, inf glides Grade II Body Position Hooklying Reps/Duration 8 min Comments good feedback results pre PROM , AAROM Manual Techniques PROM Type B shlds: FF, ABD, ER Body Position Hooklying Reps/Duration 4 min each Comments gentle painfree more range R than L PT-OP-T Assessment and Plan Start: 11/04/20 16:41 Freq: Status: Active Protocol: Document 11/16/20 14:36 SP (Rec: 11/16/20 16:09 SP [id number]) Physical Therapy Assessment Goals 4 Prison Goal (LTG) Pt will be compliant with home training including changing chairs every hour, toileting every two hours, daily walks with and progressive exercises including sit to stands, pelvic realignment and self-massage to improve function and pain by 01/05/21. LTG Duration 8 weeks Three Prison Goal (LTG) Pt will gait train at least 1300 feet in 6 minutes without AD to improve community ambulation by 01/05/21. 11/09/20: Baseline 956 ft in 6 min no AD. LTG Duration 8 weeks Two Matcher Operator Goal (LTG) Pt will perform WNLs on a standardized balance test to decrease fall risk by 01/05/21. 11/09/20: Tinetti 28/28. FGA Next tx. LTG Duration 8 weeks One Matcher Operator Goal (LTG) Pt will perform at least 10 reps sit to stand without UE support in 30 sec to improve functional strength with transfers by 01/05/21. 11/09/20: Goal MET 13 reps in 30 sec without UE support, cued for hip hinge more for safety contact chair. LTG Duration 8 weeks MET Assessment Summary Assessment Pt responded well to R shld manual jt mobs, PROM then initiated AAROM supine, standing pendulums. Initiated gentle manual STMs to L hip in R sidelying until R shld started to have deep ache so returned to supine, went away with continued manual to R shld. Pt requested to focus on R shld today, L hip and arms seems ok. Pt responded well to initiated supine clamshell AROM for B LE mobility. Pt stated felt ok when walking out. I think theses exercises will help. stated understands the set up/ form and cuing do help him at home. is vigilant about taking notes for assist on what to do at home. Physical Therapy Plan Frequency and Duration Frequency of Treatment 2x/Week Duration of Treatment 8 weeks Plan of Care Start Date 11/05/20 Plan of Care End Date 01/05/21 Therapeutic Interventions Therapeutic Interventions Balance Training,Canalithic Repositioning,Gait Training, Home Exercise Program,Joint Mobilizations,Manual Therapy, Neuromuscular Re-education, Patient/Caregiver Education, Self-Care/Home Management,Soft Tissue Mobilization,Taping, Therapeutic Activities, Therapeutic Exercises Modalities Cold Pack/Ice Massage,Hot Packs Next Visit Focus/Plan Next Note Type Treatment Note Next Visit Plan Assess response to manual, supine and standing HEP initiated. Future txs: Check orthostatics when time. Next treatment: Possible assess FGA. Rechecking sit to stand form and could add to HEP. Limit HEP exercises given Every other treatment: consider manual work in hook lying with support and pelvic realignment exercise instruction
--- NOTE | 2020-11-19 15:20 | PT.OTN ---
Current Diagnoses Pain in left shoulder (11/19/20) Pain in left hip (11/19/20) Physical Therapy Treatment Note PT-OP-A Visit Information Start: 11/04/20 16:41 Freq: Status: Active Protocol: Document 11/19/20 14:33 SP (Rec: 11/19/20 16:04 SP [id number]) Out-Patient Physical Therapy Visit Information Visit Information Visit Type Treatment Note Visit Note Medicare/Regence attended tx Visit Start Time 14:33 Visit Stop Time 15:20 Total Visit Minutes 47 Visit Number 5 Number of AGENTS' RECORDS CLERK Visits 3 Evaluation Information Evaluation Date 11/05/20 Precautions Precautions Fall risk, pt's , Quita attended tx. PT-OP-B Current Condition Start: 11/04/20 16:41 Freq: Status: Active Protocol: Document 11/05/20 13:04 MB (Rec: 11/05/20 14:03 MB [id number]) Current Condition History of Current Condition Onset Date August 2020 Current Complaints Left anterior and posterior hip sharp pain with sitting History of Current Condition Over the past 6 months, pt's activity level has declined. He was walking daily with and performing PD exercises up until the fall. In August , pt started to have left hip pain started when he was sitting more in his posterior tilted desk-type chair. He has had decreased left shoulder range of motion for a while. states that he has trouble lifting his left arm to dress. Pt is able to do his own ADLs. PT asks pt pain rating and he reports 5/10 pain. states that pt's PD symptoms are less motor and more like apathy and cognition . Memory is a problem. 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 reported that he eventually felt that he didn't see the point of doing speech exercises. His neurologist has been told about these problems. 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 Pt denies current dizziness. He states he does feel occ light-headedness when he goes to get up. Treatment Goals Patient/Caregiver Goals To decrease pain PT-OP-C Subjective Start: 04/21/21 16:41 Freq: Status: Active Protocol: Document 11/19/20 14:33 SP (Rec: 11/19/20 16:04 SP [id number]) OP-PT Subjective Patient Comments Patient Comments Pt stated his R shld continues to hurt was new after saw PT and before started with AGENTS' RECORDS CLERK, no significant improvements. Pt and his stated no pain doing d the exercises. Upon arrival today his R shld and L hip had sharp pains last night and only got 2 hr sleep, took a long time to find a position to fall alseep. PT-OP-D Balance Start: 11/04/20 16:41 Freq: Status: Active Protocol: Document 11/09/20 13:00 SP (Rec: 11/09/20 16:10 SP [id number]) Tinetti Balance Assessment Scoring and Interpretation Interpretation of Scores Low risk for falls (>24) Tinetti Impairment Rating from Composite 0% Impaired (Score 28) Score PT-OP-G Mobility & Gait Start: 11/04/20 16:41 Freq: Status: Active Protocol: Document 11/05/20 13:04 MB (Rec: 11/05/20 16:09 MB [id number]) OP Gait Assessment Gait Gait Assistance Required: Independent Distance (Feet) 75 Able to Maintain Weight Bearing Status Yes During Gait Assistive Devices Assistive Device None Orthotic/Prosthetic Devices or Brace: No Gait Deviations General Gait Pattern Antalgic,Decreased Stride Length,Decreased Feet Clearance,Flexed Trunk Factors Limiting Gait Function Factors Limiting Gait Function Decreased Activity Tolerance, Decreased Strength,Pain Comments Gait Comments Pt posture is forward and flexed with pronounced B knee flexion and pelvic obliquities that contribute to functional leg length different with right LE functionally shorter with gait. His gait is slow and with narrow TO and decreased foot clearance. PT-OP-J Posture/Palpation/Skin Start: 11/04/20 16:41 Freq: Status: Active Protocol: Document 11/05/20 13:04 MB (Rec: 11/05/20 16:09 MB [id number]) Posture Evaluation Comments Posture Comments Standing posture with shoes on : forward, flexed posture with left tragus 3 in front of left AC joint, increased thoracic flexion and decreased lumbar lordosis, B pronounced knee flexion in standing and left iliac crest 1 higher than the right Skin Assessment Other Assessments Skin Assessment Comments LLE edematous to palpation PT-OP-K Range of Motion Start: 11/04/20 16:41 Freq: Status: Active Protocol: Document 11/05/20 13:04 MB (Rec: 11/05/20 16:09 MB [id number]) Shoulder Goniometric Range of Motion Shoulder ROM Limitations Comments B shoulders with decreased AROM flexion and abduction in sitting, worse on the left with right shoulder flexion and abduction 90 deg and left shoulder flexion and abduction 70 deg Hip Goniometric Range of Motion Hip ROM Limitations Comments Pt does not clear B thighs off chair when asked: some delayed processing and execution of mobility Knee Goniometric Range of Motion Knee ROM Limitations Comments B knees with functional extension in sitting but do not reach full extension in standing PT-OP-M Strength Start: 11/04/20 16:41 Freq: Status: Active Protocol: Document 11/05/20 13:04 MB (Rec: 11/05/20 16:09 MB [id number]) Knee Strength Knee Manual Muscle Testing Left Flexion (S2) 3+ Fair+ Extension (L3) 4 Good Right Flexion (S2) 4 Good Extension (L3) 5 Normal Ankle/Foot Strength Ankle and Foot Manual Muscle Testing Left Dorsiflexion (L4) 3+ Fair+ Right Dorsiflexion (L4) 4 Good Toe Strength Toe Manual Muscle Testing Left Great Toe Extension 3+ Fair+ Right Great Toe Extension 4 Good PT-OP-Q Treatments Start: 11/04/20 16:41 Freq: Status: Active Protocol: Document 11/19/20 14:33 SP (Rec: 11/19/20 16:04 SP [id number]) Therapeutic Exercises Supine Exercises clamshell Supine Exercise Name hooklying- review HEP Reps/Minutes x10 Comments pain free range- ROM mobility for B hips shoulder ER Supine Exercise Name review HEP Side bilateral Resistance AAROM Equipment Used dowel Reps/Minutes x10 Comments pain free range, approx 45 deg shoulder flexion Supine Exercise Name BUE together- review HEP Resistance AAROM Equipment Used dowel Reps/Minutes x10 Comments pain free range- approx R 130* , L 131* Standing Exercises pendulum Standing Exercise Name added to HEP Side bilateral Reps/Minutes 1 min total Comments seated better form than standing. sit to stands Standing Exercise Name worked on slower quality posture Equipment Used 18 chair Reps/Minutes x10 Comments cued wt shift forward initial stand then rest, stable Therapeutic Activity Therapeutic Activity side sleeping support Name R sidelying (only position helps to fall asleep on) Comments education on use of pillow placement under R lateral ribcage/ lateral R scapula to unweight body off R shld to assist with pain experiencing, added pillow between BLE and tucked behind back for stability support. Minimal improvement in R shld pain. Feels good initially, uncertain if helpful still feels R shld pain. SPT chair to chair Reps/Minutes x4 Comments cued tall posture, squaring up to front of chair and backing up fully before sit. Bed mobility Comments Pt less time taken with sit, side lying and rolling onto back with head off plinth required 3 pillow support for neck comfort under head today. Pt requires light manual assist to scoot hips to lie flat. Gait Training Gait Activity gait Device Used 0 Level of Assistance SBA Surface level Distance/Duration 240 ft Treatment Focus increase stride, arms swing Comments cued tall posture PT-OP-T Assessment and Plan Start: 11/04/20 16:41 Freq: Status: Active Protocol: Document 11/19/20 14:33 SP (Rec: 11/19/20 16:04 SP [id number]) Physical Therapy Assessment Goals 4 Bottom Cager Goal (LTG) Pt will be compliant with home training including changing chairs every hour, toileting every two hours, daily walks with and progressive exercises including sit to stands, pelvic realignment and self-massage to improve function and pain by 01/05/21. 11/19/20: only 1 walk this week with noted more fatigued and labored breath at end, per weak on L. LTG Duration 8 weeks Three Fpc Goal (LTG) Pt will gait train at least 1300 feet in 6 minutes without AD to improve community ambulation by 01/05/21. 11/09/20: Baseline 956 ft in 6 min no AD. LTG Duration 8 weeks Two Fpc Goal (LTG) Pt will perform WNLs on a standardized balance test to decrease fall risk by 01/05/21. 11/09/20: Devika . FGA Next tx. LTG Duration 8 weeks One Bottom Cager Goal (LTG) Pt will perform at least 10 reps sit to stand without UE support in 30 sec to improve functional strength with transfers by 01/05/21. 11/09/20: Goal MET 13 reps in 30 sec without UE support, cued for hip hinge more for safety contact chair. LTG Duration 8 weeks MET Assessment Summary Assessment HEP review supine shld FF, ER w/ dowel, hooklying clamshell, sit<> stands. Continues to have R shld pain that kept him up last night. Assessed sleeping w/ pillow positioning on R side to assist with unweight R shld jt with minimal improvement. States is the only side can sleep on to get to sleep. Continued work on gait w/ cuing arm swing and posture. Initiated back to wall posture with good scap retraction and elongation, added to HEP and noted improvement in posture when leaving. reports gives hime cues for posture on walks but is short lived. Physical Therapy Plan Frequency and Duration Frequency of Treatment 2x/Week Duration of Treatment 8 weeks Plan of Care Start Date 11/05/20 Plan of Care End Date 01/05/21 Therapeutic Interventions Therapeutic Interventions Balance Training,Canalithic Repositioning,Gait Training, Home Exercise Program,Joint Mobilizations,Manual Therapy, Neuromuscular Re-education, Patient/Caregiver Education, Self-Care/Home Management,Soft Tissue Mobilization,Taping, Therapeutic Activities, Therapeutic Exercises Modalities Cold Pack/Ice Massage,Hot Packs Next Visit Focus/Plan Next Note Type Treatment Note Next Visit Plan Assess response to HEP review, gait, bed mobility and sleep positioing to decresae R shld pain. recheck wall posture initiated last tx. Future txs: Check orthostatics when time. Next treatment: Possible assess FGA. PT POC: Limit HEP exercises given. Every other treatment: consider manual work in hook lying with support (not always comfortable) and pelvic realignment exercise instruction next tx with PT.
--- NOTE | 2020-11-24 12:38 | PT-OP ANOTE ---
PT reviews chart and notes that pt had ED visit 11/21/20 for right LE edema with oozing area. Vascular US and x-rays were negative.
--- NOTE | 2020-11-26 09:40 | PT-OP ANOTE ---
Pt's called and cancelled 11/26/[address] Guaman instructions to hold off on PT until after 11/30/20 visit due to newly evolving medical issue of possible A-Fib. Dr Guaamn will give further instructions at 11/30/20 visit for directioning of PT.
--- NOTE | 2020-11-26 16:07 | PT-OP ANOTE ---
PT reviews pt's schedule and both of his appointments were cancelled this week. PT calls phone number in chart and there is no answer. PT leaves message and asks to return call with how pt is.
--- NOTE | 2020-11-27 07:24 | PT-OP ANOTE ---
Pt's emails PT to state that appointments have been cancelled d/t pt is being worked up for LE edema, a-fib and bruising in setting of possible heart failture. She states that pt has had shoulder and hip pain and con't to sleep a lot. 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 PT asks front office to call pt/, Qiuta, to reschedule with the primary PT. PT communicates with [place] that she should let Dr. Guaman know about pt's c/o pain in setting of heart failure. PT does suspect sitting and sedentary lifestyle are biggest contributors to pain.
--- NOTE | 2020-12-23 10:09 | PT-OP ANOTE ---
PT calls pt's and she reports that pt had a hip x-ray that revealed possible bone lesions. He is having an ECHO and full body scan. The hip and the shoulder pain are still problematic. Will cancel next PT appointment and d/c PT. is agreeable to this.
--- NOTE | 2020-12-23 10:12 | PT.OPDS ---
Current Diagnoses Pain in left shoulder (11/19/20) Pain in left hip (11/19/20) Visit Care Team Role Provider Type Guzman Guaman MD Attending Provider Physician Primary Care Provider Referring Provider Specialty: Family Practice Address: [address] [place] [address], [id number] Email: [email or web address] Visit Number Visit Number 5 Discharge Summary PT-OP-B Current Condition Start: 11/04/20 16:41 Freq: Status: Active Protocol: Document 11/05/20 13:04 MB (Rec: 11/05/20 14:03 MB [id number]) Current Condition History of Current Condition Onset Date August 2020 Current Complaints Left anterior and posterior hip sharp pain with sitting History of Current Condition Over the past 6 months, pt's activity level has declined. He was walking daily with and performing PD exercises up until the fall. In August , pt started to have left hip pain started when he was sitting more in his posterior tilted desk-type chair. He has had decreased left shoulder range of motion for a while. states that he has trouble lifting his left arm to dress. Pt is able to do his own ADLs. PT asks pt pain rating and he reports 5/10 pain. states that pt's PD symptoms are less motor and more like apathy and cognition . Memory is a problem. 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 reported that he eventually felt that he didn't see the point of doing speech exercises. His neurologist has been told about these problems. 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 Pt denies current dizziness. He states he does feel occ light-headedness when he goes to get up. 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 Pt and his stated no pain doing d the exercises. Upon arrival today his R shld and L hip had sharp pains last night and only got 2 hr sleep, took a long time to find a position to fall alseep. PT-OP-D Balance Start: 11/04/20 16:41 Freq: Status: Active Protocol: Document 11/09/20 13:00 SP (Rec: 11/09/20 16:10 SP [id number]) Tinetti Balance Assessment Scoring and Interpretation Interpretation of Scores Low risk for falls (>24) Tinetti Impairment Rating from Composite 0% Impaired (Score 28) Score PT-OP-G Mobility & Gait Start: 11/04/20 16:41 Freq: Status: Active Protocol: Document 11/05/20 13:04 MB (Rec: 11/05/20 16:09 MB [id number]) OP Gait Assessment Gait Gait Assistance Required: Independent Distance (Feet) 75 Able to Maintain Weight Bearing Status Yes During Gait Assistive Devices Assistive Device None Orthotic/Prosthetic Devices or Brace: No Gait Deviations General Gait Pattern Antalgic,Decreased Stride Length,Decreased Feet Clearance,Flexed Trunk Factors Limiting Gait Function Factors Limiting Gait Function Decreased Activity Tolerance, Decreased Strength,Pain Comments Gait Comments Pt posture is forward and flexed with pronounced B knee flexion and pelvic obliquities that contribute to functional leg length different with right LE functionally shorter with gait. His gait is slow and with narrow TO and decreased foot clearance. PT-OP-J Posture/Palpation/Skin Start: 11/04/20 16:41 Freq: Status: Active Protocol: Document 11/05/20 13:04 MB (Rec: 11/05/20 16:09 MB [id number]) Posture Evaluation Comments Posture Comments Standing posture with shoes on : forward, flexed posture with left tragus 3 in front of left AC joint, increased thoracic flexion and decreased lumbar lordosis, B pronounced knee flexion in standing and left iliac crest 1 higher than the right Skin Assessment Other Assessments Skin Assessment Comments LLE edematous to palpation PT-OP-K Range of Motion Start: 11/04/20 16:41 Freq: Status: Active Protocol: Document 11/05/20 13:04 MB (Rec: 11/05/20 16:09 MB [id number]) Shoulder Goniometric Range of Motion Shoulder ROM Limitations Comments B shoulders with decreased AROM flexion and abduction in sitting, worse on the left with right shoulder flexion and abduction 90 deg and left shoulder flexion and abduction 70 deg Hip Goniometric Range of Motion Hip ROM Limitations Comments Pt does not clear B thighs off chair when asked: some delayed processing and execution of mobility Knee Goniometric Range of Motion Knee ROM Limitations Comments B knees with functional extension in sitting but do not reach full extension in standing PT-OP-M Strength Start: 11/04/20 16:41 Freq: Status: Active Protocol: Document 11/05/20 13:04 MB (Rec: 11/05/20 16:09 MB [id number]) Knee Strength Knee Manual Muscle Testing Left Flexion (S2) 3+ Fair+ Extension (L3) 4 Good Right Flexion (S2) 4 Good Extension (L3) 5 Normal Ankle/Foot Strength Ankle and Foot Manual Muscle Testing Left Dorsiflexion (L4) 3+ Fair+ Right Dorsiflexion (L4) 4 Good Toe Strength Toe Manual Muscle Testing Left Great Toe Extension 3+ Fair+ Right Great Toe Extension 4 Good PT-OP-T Assessment and Plan Start: 11/04/20 16:41 Freq: Status: Active Protocol: Document 12/23/20 10:11 MB (Rec: 12/23/20 10:12 MB [id number]) Physical Therapy Plan Discharge Physical Therapy Discharge Reasons Change in Medical Status Discharge Comments PT calls pt's and she reports that pt had a hip x- ray that revealed possible bone lesions. He is having an ECHO and full body scan. The hip and the shoulder pain are still problematic. Will cancel next PT appointment and d/c PT. is agreeable to this
== END 2020-12-23 10:14 | disposition home or self-care (01) ==
LOC: PHYS 14:30
PROVIDERS: PCP Family Medicine; Referring Provider Family Medicine; Visit Provider Family Medicine
DX: M25.552 Pain in left hip (principal); M25.512 Pain in left shoulder
CPT/HCPCS: 97010; 97110; 97112; 97140; 97162; 97530; 97535

== ENCOUNTER 2020-11-21 13:33 | Emergency (ER) | payer MEDICARE, OTHER, SELFPAY ==
[2020-11-21 13:49] VITALS: BP 144/66; PULSE 61; RESP 18; TEMP 36.6; O2SAT 99; BMI 23.5
--- NOTE | 2020-11-21 14:08 | ED.EXTPRO ---
HPI - Extremity Problem General Chief complaint: Extremity Problem,Nontraumatic Stated complaint: right lower leg possible blood clot Time Seen by Provider: 11/21/20 13:56 Source: patient and family Mode of arrival: Family Vehicle Limitations: no limitations History of Present Illness HPI Narrative: Patient is an 85-year-old male history of Parkinson's and dementia presenting with his who is the primary historian and caregiver for right leg lower extremity swelling. Lower extremity swelling off and on for while. She has compression socks for him he is also on a diuretic. She says the left leg is usually the problem they only intermittently been using the compression sock on the right leg. This morning she noticed that it was significantly more swollen than the left and also there is a yellowish discoloration of the right leg from the knee down. It is non tender he does walk. He woke up this morning feeling generally weak. She noticed that he was a little disheveled after getting himself dressed this morning which was abnormal. He has some pain in his right shoulder ongoing for which she is seeing physical therapy at for it is not new. Other than that he has no new pain. He denies chest pain cough shortness of breath painful or frequent urination. He is incontinent of urine and he wears depends. MD Complaint: extremity swelling Related Data Home Medications Medication Instructions Recorded Confirmed cholecalciferol (vitamin D3) 1,000 unit PO QAM #0 sgl 04/08/13 11/21/20 [Vitamin D3] carbidopa-levodopa 2 tab PO QID #0 05/02/17 11/21/20 aspirin 81 mg tablet,delayed 81 mg PO QPM 11/29/17 11/21/20 release coenzyme Q10 100 mg capsule 200 mg PO DAILY 06/04/18 11/21/20 Lion's Artemio Mushroom 2 cap PO 1200 10/15/18 09/28/20 polyethylene glycol 3350 17 See Rx Instructions PO DAILY 04/02/19 09/28/20 gram/dose oral powder vitamins A,C,R-[id number]-kqdvcs 7,160 1 tab PO BID tab 04/02/19 09/28/20 unit-113 mg-100 unit tablet calcium carbonate 500 mg calcium 500 mg PO DAILY 12/17/19 09/28/20 (1,250 mg) tablet vitamin B complex 1 tab PO DAILY 12/17/19 09/28/20 Previous Rx's Medication Instructions Recorded furosemide 40 mg tablet 40 mg PO DAILY #30 tab 11/21/19 potassium chloride 20 mEq 20 meq PO DAILY #30 tab 11/21/19 tablet,extended release atorvastatin 20 mg tablet 20 mg PO QPM #90 tab 04/10/20 metformin 500 mg tablet 500 mg PO DAILY #30 tab 09/28/20 tamsulosin 0.4 mg capsule 0.8 mg PO DAILY #180 cap 10/09/20 Allergies Allergy/AdvReac Type Severity Reaction Status Date / Time No Known Drug Allergies Allergy Verified 09/28/20 10:53 Review of Systems Review of Systems ROS Unobtainable: All systems reviewed & are unremarkable except as noted in HPI and below Constitutional Constitutional: Denies body ache(s), Denies chills, Reports fatigue and Denies frequent falls ENT Ears, Nose, Mouth, and Throat: Denies change in voice, Denies vertigo, Denies dizziness, Denies neck pain and Denies sore throat Cardiovascular Cardiovascular: Denies chest pain, Denies irregular heart rhythm, Reports leg edema, Denies lightheadedness, Denies palpitations, Denies dyspnea, Denies dyspnea on exertion and Denies orthopnea Respiratory Respiratory: Denies cough, Denies dyspnea, Denies dyspnea on exertion and Denies wheezing Gastrointestinal Gastrointestinal: Denies abdominal pain, Denies change in bowel habits, Denies diarrhea, Denies nausea and Denies vomiting Musculoskeletal Musculoskeletal: Denies back pain, Denies loss of height and Denies neck pain Integumentary/Breasts Skin/Breast: Denies pruritus, Denies erythema, Denies rash and Denies wounds Neurologic Neurologic: Denies vertigo, Denies dizziness, Denies frequent falls and Reports memory loss Psychiatric Psychiatric: Reports memory loss Endocrine Endocrine: Reports fatigue and Denies palpitations Allergic/Immunologic Allergic/Immunologic: Denies wheezing Patient History Medical History Acquired hypothyroidism (08/08/14) Asthma Cardiac arrhythmia (~2012) Cataract (2009) Cerebrovascular accident (CVA) (05/11/17) Chicken pox Cognitive decline Colon polyps (2010) Diverticular disease (~2010) Hayfever Hemorrhoids (~2010) Hydrocele (~2011) Hyperlipidemia (03/13/13) Intracranial tumor (08/08/14) 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 Mother Lung cancer Social History marital status: Smoking Status: Never smoker alcohol intake: current (ON OCCASION ) Smoking Status: Never smoker alcohol intake frequency: 0-2 drinks per day Substance Use Type: does not use Exam Initial Vital Signs Initial Vital Signs: Vital Signs Temperature 97.9 F 11/21/20 13:49 Pulse Rate 61 11/21/20 13:49 Respiratory Rate 18 11/21/20 13:49 Blood Pressure 144/66 H 11/21/20 13:49 Pulse Oximetry 99 11/21/20 13:49 GENERAL: Alert elderly 85-year-old male appears weak HEENT: Head atraumatic,EOMI, pupils reactive, face symmetric, moist mucous membranes CARDIOVASCULAR: Regular rate and rhythm without murmurs, rubs or gallops. RESPIRATORY: Breath sounds equal bilaterally, no wheezes rales or rhonchi. ABDOMEN: Soft, nontender. Normoactive bowel sounds all 4 quadrants. No guarding or rebound. EXTREMITIES: Normal range of motion, no clubbing or edema. Neurovascularly intact NEUROLOGICAL: Alert and oriented x2. Answers questions at baseline per SKIN: Right lower leg knee down is a yellowish discoloration no erythema no vesicles or other rash Course Orders Ordered: ED Orders 11/21/20 14:12 US periph venous low extrem bi Stat XR chest 1V Stat 11/21/20 14:23 Urinalysis and Microscopic Stat 11/21/20 14:35 Complete Blood Count AUTO DIFF Stat Comprehensive Metabolic Panel Stat Procalcitonin Stat 11/21/20 16:20 XR ankle RT 2V Stat XR foot RT min 3V Stat Vital Signs Vital signs: Vital Signs - 8 hr 11/21/20 13:49 11/21/20 16:40 Temperature 97.9 F Pulse Rate 61 61 Respiratory Rate 18 Blood Pressure 144/66 H 142/65 H Pulse Oximetry 99 98 MDM - Extremity (Nontraumatic) Lab Data Result diagrams: 11/21/20 14:35 11/21/20 14:35 Labs: Lab Results 11/21/20 11/21/20 11/21/20 Range/Units 14:23 14:35 14:35 WBC 5.5 (4.5-11.0) X10^3/uL RBC 3.25 L (4.5-5.9) X10^6/uL Hgb 10.4 L (13.5-17.5) g/dL Hct 30.3 L (41-53) % MCV 93.3 (80-100) fL MCH 32.0 (26-34) PG MCHC 34.3 (30-36) % RDW 13.4 (11.6-14.8) % Plt Count 92 L (150-400) X10^3/uL Neut % (Auto) 63.7 (50-75) % Lymph % (Auto) 24.2 L (25-40) % Mcnairy % (Auto) 9.9 (3-14) % Eos % (Auto) 1.4 L (2-4) % Baso % (Auto) 0.8 (0-2) % Neut # (Auto) 3500 (4061-7839) /uL Lymph # (Auto) 1300 (1238-5759) /uL Mcnairy # (Auto) 500 (0-900) /uL Eos # (Auto) 100 (0-450) /uL Baso # (Auto) 0 (0-100) /uL Sodium 141 (137-145) mmol/L Potassium 4.4 (3.4-5.1) mmol/L Chloride 105 (98-107) mmol/L Carbon Dioxide 28 (22-32) mmol/L BUN 24 H (9-20) mg/dL Creatinine 0.96 (0.66-1.25) mg/dL Estimated GFR > 60.0 (>60) mL/min BUN/Creatinine Ratio 25.0 H (6-22) Glucose 105 (80-110) mg/dL Calcium 8.9 (8.4-10.2) mg/dL Total Bilirubin 0.6 (0.2-1.3) mg/dL AST 126 H (17-59) IU/L ALT 22 (<50) IU/L Alkaline Phosphatase 246 H (38-126) U/L Total Protein 6.9 (6.3-8.2) g/dL Albumin 3.8 (3.5-5.0) g/dL Globulin 3.1 (1.7-4.1) g/dL Albumin/Globulin Ratio 1.2 (1.0-2.8) Procalcitonin 0.43 (<0.5) ng/mL Urine Color Yellow Urine Appearance Clear Urine pH 7.0 (4.5-8.0) Ur Specific [place] 1.015 (1.000-1.035) Urine Protein Negative (Negative) Urine Glucose (UA) Negative (Negative) g/dL Urine Ketones Negative (NEGATIVE) Urine Occult Blood Negative (Negative) Urine Nitrate Negative (Negative) Urine Bilirubin Negative (NEGATIVE) Urine Urobilinogen 0.2 (0.2) E.U./dL Ur Leukocyte Esterase Negative (NEGATIVE) Urine RBC None seen (0-5/HPF) Urine WBC None seen (0-5/HPF) Urine Bacteria None seen (None) Ur Culture Indicated? Cult not indicated Imaging Data US - DVT: Radiologist's Impression: PROCEDURE: US PERIPH VENOUS LOW EXTREM BI INDICATIONS: EDEMA TECHNIQUE: Real-time imaging, as well as color and pulse Doppler interrogation, were performed of the deep veins of both legs from the inguinal ligament to the popliteal fossa. COMPARISON: None. FINDINGS: Right: The common femoral, femoral and popliteal veins are normally compressible, and free of intraluminal thrombus. Color and pulse Doppler demonstrate normal phasic intravascular flow. There is normal augmentation response to distal compression maneuver. Left: The common femoral, femoral and popliteal veins are normally compressible, and free of intraluminal thrombus. Color and pulse Doppler demonstrate normal phasic intravascular flow. There is normal augmentation response to distal compression maneuver. There is a cyst in the left popliteal fossa measuring 4.7 x 1.7 x 3.5 cm compatible with a Reilly's cyst. IMPRESSION: 1. No evidence of deep venous thrombosis in the right or left lower extremity. Dictated by: Bobby Leong M.D. on 11/21/2020 at 15:40 Extremity x-ray #1: Radiologist's Impression: PROCEDURE: XR ANKLE RT 2V INDICATIONS: swelling bruising TECHNIQUE: 2 views of the ankle were acquired. COMPARISON: [facility], [facility] VENOUS LOW EXTREM BI, 11/21/2020, 15:09. [facility], XR FOOT RT MIN 3V, 11/21/2020, 16:23. FINDINGS: Bones: No fractures or dislocations. Ankle mortise is normally aligned. No suspicious bony lesions. The talar dome demonstrates no bayron abnormality. Soft tissues: Generalized soft tissue swelling is seen. IMPRESSION: Soft tissue swelling is seen, without an acute bony abnormality seen by plain film. If there is point tenderness (or other clinical suspicion for a fracture not seen on these images) then a dedicated CT or a short-term followup plain film series could be considered for further evaluation, as clinically appropriate. Dictated by: Leonard Taylor M.D. on 11/21/2020 at 15:56 Extremity x-ray #2: Radiologist's Impression: PROCEDURE: XR FOOT RT MIN 3V INDICATIONS: swelling bruise TECHNIQUE: 3 views of the foot were acquired. COMPARISON: [facility], XR ANKLE RT 2V, 11/21/2020, 16:23. [facility], [facility] VENOUS LOW EXTREM BI, 11/21/2020, 15:09. FINDINGS: Bones: No fractures or dislocations. No suspicious bony lesions. Age-appropriate bony degenerative changes are seen. Toe alignment abnormalities are seen. Soft tissues: No tibiotalar joint effusion. Achilles tendon appears normal. IMPRESSION: Degenerative changes are seen, without an acute fracture identified. Dictated by: Leonard Taylor M.D. on 11/21/2020 at 15:57 MDM Narrative Medical decision making narrative: Patient does have some yellowish discoloration of his right lower leg knee down. He actually is found have some bruising around his right lateral heel. No significant bony injury. Distal pedal pulse is intact. He has no pain. X-rays and ultrasound negative. He has no sign of infection. At this time states that he was previously on Lasix and potassium on an as-needed basis however she did not feel comfortable giving it to him as an as-needed basis the so we discussed when he would needed and when he went needed and the length that he with needed for. At this time I recommend he wear bilateral compression socks and to try Lasix again at home. Discharge Plan Departure Patient Disposition: Home Clinical Impression: Bilateral edema of lower extremity Instructions: DI for Peripheral Edema -- Bilateral Activity Restrictions/Additional Instructions: *You have been diagnosed with bilateral lower extremity edema *What to do: At this time I recommend he wear compression socks on both legs daily. You may need to be on a diuretic again please discuss with your primary care provider. Blood work today is overall reassuring no sign of infection. *Continue to take medications as directed *Follow up with your primary care provider in 2-3 days *Return to ER if you should have increasing weakness, worsening confusion or any new, worsening or concerning symptoms Prescriptions: No Action PreserVision AREDS 7,160-113-100 [id number] tablet 1 tab PO BID RF: 0 polyethylene glycol 3350 [Miralax] 17 gram/dose powder See Rx Instructions PO DAILY RF: 0 calcium carbonate [Calcium 500] 500 mg calcium (1,250 mg) tablet 500 mg PO DAILY RF: 0 vitamin B complex [B Complex-Vitamin B12] Tablet 1 tab PO DAILY RF: 0 metformin 500 mg tablet 500 mg PO DAILY Qty: 30 RF: 3 cholecalciferol (vitamin D3) [Vitamin D3] 1,000 unit Capsule 1,000 unit PO QAM Qty: 0 RF: 0 carbidopa-levodopa 25 MG/100 MG tablet 2 tab PO QID Qty: 0 RF: 0 furosemide 40 mg tablet 40 mg PO DAILY Qty: 30 RF: 1 potassium chloride 20 mEq tablet extended release 20 meq PO DAILY Qty: 30 RF: 1 atorvastatin 20 mg tablet 20 mg PO QPM Qty: 90 RF: 3 tamsulosin [Flomax] 0.4 mg capsule 0.8 mg PO DAILY Qty: 180 RF: 1 aspirin [Adult Low Dose Aspirin] 81 mg tablet,delayed release (DR/EC) 81 mg PO QPM RF: 0 coenzyme Q10 [CoQ-10] 100 mg capsule 200 mg PO DAILY RF: 0 Lion's Artemio Mushroom 2 cap PO 1200 RF: 0 Referrals: Guzman Guaman MD [Primary Care Provider] -
--- NOTE | 2020-11-21 14:12 | DI.US.S_ITS ---
PROCEDURE: US PERIPH VENOUS LOW EXTREM BI INDICATIONS: EDEMA TECHNIQUE: Real-time imaging, as well as color and pulse Doppler interrogation, were performed of the deep veins of both legs from the inguinal ligament to the popliteal fossa. COMPARISON: None. FINDINGS: Right: The common femoral, femoral and popliteal veins are normally compressible, and free of intraluminal thrombus. Color and pulse Doppler demonstrate normal phasic intravascular flow. There is normal augmentation response to distal compression maneuver. Left: The common femoral, femoral and popliteal veins are normally compressible, and free of intraluminal thrombus. Color and pulse Doppler demonstrate normal phasic intravascular flow. There is normal augmentation response to distal compression maneuver. There is a cyst in the left popliteal fossa measuring 4.7 x 1.7 x 3.5 cm compatible with a Reilly's cyst. IMPRESSION: 1. No evidence of deep venous thrombosis in the right or left lower extremity. Dictated by: Bobby Leong M.D. on 11/21/2020 at 15:40 Approved by: Bobby Leong M.D. on 11/21/2020 at 15:41
--- NOTE | 2020-11-21 14:12 | DI.RAD.S_ITS ---
PROCEDURE: XR CHEST 1V INDICATIONS: weakness TECHNIQUE: One view of the chest was acquired. COMPARISON: [facility], CR, XR CHEST 1V, 10/15/2018, 10:34. FINDINGS: Surgical changes and devices: None. Lungs and pleura: There are nodular opacities projecting over the lung bases likely representing nipple shadows. No acute consolidation. No pleural effusions or pneumothorax. Mediastinum: There is tortuosity of the thoracic aorta. Heart size is normal. Bones and chest wall: No suspicious bony lesions. Overlying soft tissues appear unremarkable. IMPRESSION: 1. No definite acute cardiopulmonary disease. Dictated by: Bobby Leong M.D. on 11/21/2020 at 14:42 Approved by: Bobby Leong M.D. on 11/21/2020 at 14:44
[2020-11-21 14:31] LABS: Appearance Urine UA CLEAR; Bacteria Urine None Seen; Bilirubin Urine UA NEGATIVE (NEGATIVE); Color Urine UA YELLOW; Glucose Urine UA NEGATIVE (Negative); Ketones Urine UA NEGATIVE (NEGATIVE); Leukocyte Esterase Urine UA NEGATIVE (NEGATIVE); Nitrite Urine UA NEGATIVE (Negative); Occult Blood Urine UA NEGATIVE (Negative); Protein Urine UA NEGATIVE (Negative); RBC Urine None Seen (0-5/HPF); Specific Gravity Urine UA 1.015 (1.000-1.035); Urobilinogen Urine UA 0.2 E.U./dL (0.2); WBC Urine None Seen (0-5/HPF)
[2020-11-21 14:58] LABS: Culture Indicated Urine Cult Not Indicated
[2020-11-21 15:13] LABS: HEMOLYSIS 20 (0-50)
[2020-11-21 15:18] LABS: Alanine Aminotransferase 22 IU/L (<50); Albumin 3.8 g/dL (3.5-5.0); Albumin Globulin Ratio 1.2 (1.0-2.8); Alkaline Phosphatase 246 U/L (38-126); Aspartate Aminotransferase 126 IU/L (17-59); Bilirubin Total 0.6 mg/dL (0.2-1.3); Blood Urea Nitrogen 24 mg/dL (9-20); Calcium 8.9 mg/dL (8.4-10.2); Carbon Dioxide 28 mmol/L (22-32); Chloride 105 mmol/L (98-107); Estimated Glomerular Filt Rate > 60.0 mL/min (>60); Globulin 3.1 g/dL (1.7-4.1); Glucose 105 mg/dL (80-110); Potassium 4.4 mmol/L (3.4-5.1); Sodium 141 mmol/L (137-145); Total Protein 6.9 g/dL (6.3-8.2)
[2020-11-21 15:40] LABS: Add Manual Diff / Slide Review NO; Basophils Absolute Auto 0 /uL (0-100); Basophils Percent Auto 0.8 % (0-2); Eosinophils Absolute Auto 100 /uL (0-450); Eosinophils Percent Auto 1.4 % (2-4); Hematocrit 30.3 % (41-53); Hemoglobin 10.4 g/dL (13.5-17.5); Lymphocytes Absolute Auto 1300 /uL (1100-4500); Lymphocytes Percent Auto 24.2 % (25-40); Mean Corpuscular HGB Conc 34.3 % (30-36); Mean Corpuscular Volume 93.3 fL (80-100); Monocytes Absolute Auto 500 /uL (0-900); Monocytes Percent Auto 9.9 % (3-14); Neutrophils Absolute Auto 3500 /uL (1500-7000); Neutrophils Percent Auto 63.7 % (50-75); Platelet Count 92 X10^3/uL (150-400); Red Blood Cell Count 3.25 X10^6/uL (4.5-5.9); Red Cell Distribution Width 13.4 % (11.6-14.8); White Blood Cell Count 5.5 X10^3/uL (4.5-11.0)
[2020-11-21 15:53] LABS: Procalcitonin 0.43 ng/mL (<0.5)
--- NOTE | 2020-11-21 16:20 | DI.RAD.S_ITS ---
PROCEDURE: XR ANKLE RT 2V INDICATIONS: swelling bruising TECHNIQUE: 2 views of the ankle were acquired. COMPARISON: [facility], , US PERIPH VENOUS LOW EXTREM BI, 11/21/2020, 15:09. [facility], , XR FOOT RT MIN 3V, 11/21/2020, 16:23. FINDINGS: Bones: No fractures or dislocations. Ankle mortise is normally aligned. No suspicious bony lesions. The talar dome demonstrates no bayron abnormality. Soft tissues: Generalized soft tissue swelling is seen. IMPRESSION: Soft tissue swelling is seen, without an acute bony abnormality seen by plain film. If there is point tenderness (or other clinical suspicion for a fracture not seen on these images) then a dedicated CT or a short-term followup plain film series could be considered for further evaluation, as clinically appropriate. Dictated by: Leonard Taylor M.D. on 11/21/2020 at 15:56 Approved by: Leonard Taylor M.D. on 11/21/2020 at 15:57
--- NOTE | 2020-11-21 16:20 | DI.RAD.S_ITS ---
PROCEDURE: XR FOOT RT MIN 3V INDICATIONS: swelling bruise TECHNIQUE: 3 views of the foot were acquired. COMPARISON: [facility], CR, XR ANKLE RT 2V, 11/21/2020, 16:23. [facility], , US PERIPH VENOUS LOW EXTREM BI, 11/21/2020, 15:09. FINDINGS: Bones: No fractures or dislocations. No suspicious bony lesions. Age-appropriate bony degenerative changes are seen. Toe alignment abnormalities are seen. Soft tissues: No tibiotalar joint effusion. Achilles tendon appears normal. IMPRESSION: Degenerative changes are seen, without an acute fracture identified. Dictated by: Leonard Taylor M.D. on 11/21/2020 at 15:57 Approved by: Leonard Taylor M.D. on 11/21/2020 at 15:58
[2020-11-21 16:40] VITALS: BP 142/65; PULSE 61; O2SAT 98
[2020-11-21 17:24] VITALS: BP 123/58; PULSE 88; RESP 18; O2SAT 99
== END 2020-11-21 17:25 | disposition home or self-care (01) ==
PROVIDERS: Emergency Provider Emergency Medicine; PCP Family Medicine
DX: R60.0 Localized edema (principal); R53.1 Weakness
CPT/HCPCS: 36415; 71045; 73600; 73630; 80053; 81001; 84145; 85025; 93970; 99284

== ENCOUNTER → 2020-11-25 15:48 | Outpatient (CLI) | payer MEDICARE, OTHER, SELFPAY ==
[2020-11-25 16:29] LABS: Add Manual Diff / Slide Review NO; Basophils Absolute Auto 0 /uL (0-100); Basophils Percent Auto 0.5 % (0-2); Eosinophils Absolute Auto 0 /uL (0-450); Eosinophils Percent Auto 0.3 % (2-4); Hematocrit 28.3 % (41-53); Hemoglobin 9.7 g/dL (13.5-17.5); Lymphocytes Absolute Auto 1300 /uL (1100-4500); Lymphocytes Percent Auto 16.3 % (25-40); Mean Corpuscular HGB Conc 34.1 % (30-36); Mean Corpuscular Hemoglobin 31.7 PG (26-34); Monocytes Absolute Auto 700 /uL (0-900); Monocytes Percent Auto 9.7 % (3-14); Neutrophils Absolute Auto 5600 /uL (1500-7000); Neutrophils Percent Auto 73.2 % (50-75); Platelet Count 108 X10^3/uL (150-400); Red Blood Cell Count 3.04 X10^6/uL (4.5-5.9); Red Cell Distribution Width 13.9 % (11.6-14.8); White Blood Cell Count 7.7 X10^3/uL (4.5-11.0)
[2020-11-25 16:42] LABS: Hemoglobin A1C% w Est Avg Glu 5.4 % (4.0-6.0)
[2020-11-25 16:53] LABS: Alanine Aminotransferase 7 IU/L (<50); Albumin 3.7 g/dL (3.5-5.0); Albumin Globulin Ratio 1.3 (1.0-2.8); Alkaline Phosphatase 238 U/L (38-126); Aspartate Aminotransferase 107 IU/L (17-59); BUN Creatinine Ratio 23.7 (6-22); Bilirubin Total 0.6 mg/dL (0.2-1.3); Blood Urea Nitrogen 28 mg/dL (9-20); Calcium 8.7 mg/dL (8.4-10.2); Carbon Dioxide 23 mmol/L (22-32); Chloride 107 mmol/L (98-107); Estimated Glomerular Filt Rate 58.5 mL/min (>60); Globulin 2.9 g/dL (1.7-4.1); Glucose 166 mg/dL (80-110); HEMOLYSIS < 15 (0-50); Potassium 4.4 mmol/L (3.4-5.1); Sodium 139 mmol/L (137-145); Total Protein 6.6 g/dL (6.3-8.2)
[2020-11-25 16:58] LABS: NT-proBNP (BNP-Adult 18+) 1840 pg/mL (<450)
[2020-11-25 18:12] LABS: TSH w/ Reflex to FT4 4.34 uIU/mL (0.47-4.68)
== END ==
PROVIDERS: PCP Family Medicine; Referring Provider Family Medicine; Visit Provider Family Medicine
DX: I10 Essential (primary) hypertension (principal); I44.4 Left anterior fascicular block; I11.0 Hypertensive heart disease with heart failure; E03.9 Hypothyroidism, unspecified; E78.2 Mixed hyperlipidemia; R41.89 Other symptoms and signs involving cognitive functions and awareness
CPT/HCPCS: 36415; 80053; 83036; 83880; 84443; 85025

== ENCOUNTER → 2020-12-15 14:32 | Outpatient (CLI) | payer MEDICARE, OTHER, SELFPAY ==
--- NOTE | 2020-12-15 14:34 | DI.RAD.S_ITS ---
PROCEDURE: XR HIP W PEL IF DONE LT 2V INDICATIONS: left hip pain TECHNIQUE: AP pelvis with lateral view(s) of the left hip(s). COMPARISON: None. FINDINGS: Bones: No fractures or dislocations. Pelvic ring appears intact. The left acetabulum and supra-acetabular region of the iliac bone and left ischial bone and pubis are all of increased density and have a slightly expansile appearance. Moderate left hip degenerative arthritis. Soft tissues: The visualized bowel gas pattern is normal. No suspicious soft tissue calcifications. IMPRESSION: Ill-defined sclerotic and mildly expansile appearance of the supra-acetabular left iliac bone and left ischial bone. Consider sclerotic metastatic disease versus Paget's disease. Comment: Of note, there are no prior films available for comparison. If prior films exist, and could be obtained, a comparison can be made at that time, an addendum can be made to this dictation. Dictated by: Yadiel Stoddard M.D. on 12/15/2020 at 16:14 Approved by: Yadiel Stoddard M.D. on 12/15/2020 at 16:18
[2020-12-15 16:22] LABS: BUN Creatinine Ratio 21.2 (6-22); Blood Urea Nitrogen 31 mg/dL (9-20); Calcium 9.3 mg/dL (8.4-10.2); Carbon Dioxide 28 mmol/L (22-32); Chloride 107 mmol/L (98-107); Estimated Glomerular Filt Rate 45.8 mL/min (>60); Glucose 98 mg/dL (80-110); HEMOLYSIS < 15 (0-50); Potassium 5.1 mmol/L (3.4-5.1); Sodium 144 mmol/L (137-145)
== END ==
PROVIDERS: PCP Family Medicine; Referring Provider Family Medicine; Visit Provider Family Medicine
DX: M25.552 Pain in left hip (principal); I50.31 Acute diastolic (congestive) heart failure
CPT/HCPCS: 36415; 73502; 80048

== ENCOUNTER → 2020-12-18 14:28 | Outpatient (CLI) | payer MEDICARE, OTHER, SELFPAY ==
[2020-12-18 15:39] LABS: Add Manual Diff / Slide Review NO; Basophils Absolute Auto 100 /uL (0-100); Basophils Percent Auto 1.1 % (0-2); Eosinophils Absolute Auto 100 /uL (0-450); Eosinophils Percent Auto 2.3 % (2-4); Hematocrit 27.9 % (41-53); Hemoglobin 9.3 g/dL (13.5-17.5); Lymphocytes Absolute Auto 1400 /uL (1100-4500); Lymphocytes Percent Auto 23.2 % (25-40); Mean Corpuscular HGB Conc 33.3 % (30-36); Mean Corpuscular Hemoglobin 30.7 PG (26-34); Monocytes Absolute Auto 500 /uL (0-900); Monocytes Percent Auto 7.4 % (3-14); Neutrophils Absolute Auto 4100 /uL (1500-7000); Platelet Count 134 X10^3/uL (150-400); Red Blood Cell Count 3.03 X10^6/uL (4.5-5.9); Red Cell Distribution Width 14.6 % (11.6-14.8); White Blood Cell Count 6.2 X10^3/uL (4.5-11.0)
[2020-12-18 15:58] LABS: Alanine Aminotransferase 4 IU/L (<50); Albumin 3.8 g/dL (3.5-5.0); Albumin Globulin Ratio 1.2 (1.0-2.8); Alkaline Phosphatase 369 U/L (38-126); Aspartate Aminotransferase 172 IU/L (17-59); BUN Creatinine Ratio 23.3 (6-22); Bilirubin Total 0.5 mg/dL (0.2-1.3); Blood Urea Nitrogen 30 mg/dL (9-20); Calcium 9.2 mg/dL (8.4-10.2); Carbon Dioxide 27 mmol/L (22-32); Chloride 107 mmol/L (98-107); Estimated Glomerular Filt Rate 52.8 mL/min (>60); Globulin 3.2 g/dL (1.7-4.1); Glucose 112 mg/dL (80-110); HEMOLYSIS < 15 (0-50); Potassium 4.3 mmol/L (3.4-5.1); Sodium 142 mmol/L (137-145)
[2020-12-18 17:06] LABS: Prostate Specific Antigen Scrn 93.1 ng/mL (0.1-4.0)
[2020-12-21 15:39] LABS: Albumin 3.3 g/dL (2.9-4.4); Alpha-1-Globulin 0.4 g/dL (0.0-0.4); Alpha-2-Globulin 0.9 g/dL (0.4-1.0); Gamma Globulin 1.1 g/dL (0.4-1.8); Globulin Total 3.5 g/dL (2.2-3.9); Protein, Total 6.8 g/dL (6.0-8.5)
[2020-12-22 15:27] LABS: Alpha-1 Globulin, Ur 6.9 % (.); Beta Globulin, Ur 33.2 % (.); Gamma Globulin, Ur 20.8 % (.); M-Spike % Not Observed % (Not Observed); Urine Total Protein 15.4 mg/dL (Not Estab.)
== END ==
PROVIDERS: PCP Family Medicine; Referring Provider Family Medicine; Visit Provider Family Medicine
DX: I10 Essential (primary) hypertension (principal); Z12.5 Encounter for screening for malignant neoplasm of prostate; M89.8X5 Other specified disorders of bone, thigh; R74.8 Abnormal levels of other serum enzymes
CPT/HCPCS: 36415; 80053; 84155; 84156; 84165; 84166; 85025; G0103

== ENCOUNTER → 2020-12-24 09:11 | Outpatient (CLI) | payer MEDICARE, OTHER, SELFPAY ==
--- NOTE | 2020-12-24 09:13 | DI.ECHO.S_ITS ---
[place] +---------+ [facility] +---------+ : : [address] : : : : [id number] : : : : Phone: [phone]---------+ Echocardiogram Report + + :Name: ANNY MONTAÑO Study Date: 12/24/2020 Height: 70 in : :[facility] ReadingLocation: Weight: 152 lb: : Gender: Male BSA: 1.9 m2 : :: 1935 Age: 85 yrs BP: 90/54 mmHg: :Reason For Study: ELEVATED BNP : :Ordering Physician: CHANTE, : :LENI Performed By: Janice Nelson : :Referring: LENI SHARIF : + + Interpretation Summary 1) Normal left ventricular size, thickness, wall motion, and systolic function (EF 55-60%). 2) The right ventricle is mildly dilated. The right ventricular systolic function is normal. 3) There is mild to moderate aortic regurgitation. 4) The right ventricular systolic pressure is estimated to be at least 45 mmHg based on an estimated right atrial pressure of 8 mm Hg. 5) Compared to the Echo done 05/17/2017, no significant change when compared visually. Procedure: A two-dimensional transthoracic echocardiogram with color flow and Doppler was performed. The study quality was technically adequate. Comparison is made with the echocardiogram of 05/17/2017. The patient was in sinus rhythm with heart rates between 53-74 bpm during the exam. Left Ventricle: The left ventricle is normal in size and wall thickness. The ejection fraction is estimated to be 55-60%. There are no focal wall motion abnormalities. Right Ventricle: The right ventricle is mildly dilated. The right ventricular systolic function is normal. Atria: The left atrial size is normal. The right atrium is mildly dilated. There is no Doppler evidence for an interatrial shunt. Mitral Valve: The mitral valve is normal in structure and function. There is mild mitral regurgitation. Aortic Valve: The aortic valve is trileaflet. The aortic valve is mildly calcified. There is no aortic valve stenosis. There is mild to moderate aortic regurgitation. Tricuspid Valve: The tricuspid valve is normal in structure and function. There is mild tricuspid regurgitation. The right ventricular systolic pressure is estimated to be at least 45 mmHg based on an estimated right atrial pressure of 8 mm Hg. Pulmonic Valve: The pulmonic valve is not well visualized. There is mild pulmonic regurgitation. Great Vessels: The aortic root is normal size. The ascending aorta is mildly enlarged. The IVC is dilated (diameter is greater than 2.1 cm) yet it collapses greater than 50% with a sniff. This suggests a right atrial pressure of 8 mm Hg. Pericardium/ Pleura There is no pericardial effusion. There is no pleural effusion. MMode/2D Measurements & Calculations LVIDd: 4.2 cm LVOT diam: 2.4 cm LVIDs: 2.8 cm Ao root diam: 3.6 cm FS: 33.4 % asc Aorta Diam: 3.7 cm EPSS: 0.59 cm IVSd: 0.80 cm LVPWd: 0.92 cm LV jimenez. diameter/BSA (cm/m^2): 2.3 LV sys. diameter/BSA (cm/m^2): 1.5 LA A2 area: 17.8 cm2 RA long axis: 5.4 cm LA A4 area: 16.7 cm2 RA area: 21.6 cm2 LA length (vol): 4.9 cm RA vol: 74.1 ml LA vol: 51.8 ml RA : 39.9 ml/m2 LA vol index: 27.9 ml/m2 IVC diam: 2.2 cm RVD1 (basal): 4.1 cm TAPSE: 2.0 cm Doppler Measurements & Calculations Ao V2 max: 128.9 cm/sec LVOT Max Hayes: 108.9 cm/sec Ao V2 mean: 85.0 cm/sec LV V1 max P.7 mmHg Ao max P.6 mmHg LV V1 VTI: 22.5 cm Ao mean P.4 mmHg FANG(I,D): 4.2 cm2 Ao V2 VTI: 25.2 cm FANG(V,D): 4.0 cm2 sev ratio: 0.89 FANG indexed to BSA (cm^2/m^2): 2.3 MV E max hayes: 52.6 cm/sec TR max hayes: 294.9 cm/sec MV A max hayes: 91.6 cm/sec TR max P.8 mmHg MV E/A: 0.57 PA pr(Accel): 37.9 mmHg Med Peak E' Hayes: 4.2 cm/sec E/E' med: 12.7 Lat Peak E' Hayes: 9.7 cm/sec E/E' lat: 5.4 E/e' average: 9.1 MV dec time: 0.29 sec SVLVOT): 105.8 ml Reading Physician:02:51 PM
== END ==
PROVIDERS: PCP Family Medicine; Referring Provider Family Medicine; Visit Provider Family Medicine
DX: I08.3 Combined rheumatic disorders of mitral, aortic and tricuspid valves (principal); I77.89 Other specified disorders of arteries and arterioles; I48.20 Chronic atrial fibrillation, unspecified; I50.9 Heart failure, unspecified
CPT/HCPCS: 93306

== ENCOUNTER → 2020-12-25 10:37 | Outpatient (CLI) | payer MEDICARE, OTHER, SELFPAY ==
--- NOTE | 2020-12-25 10:39 | DI.NM.S_ITS ---
PROCEDURE: NM BONE SCAN WHOLE BODY RADIOPHARMACEUTICAL: 19.9 mCi Tc-99m MDP IV. INDICATIONS: hip pain with bone lession TECHNIQUE: Delayed whole-body scintigrams were obtained approximately 3-4 hours after intravenous injection of radiotracer. Anterior and posterior views were acquired from vertex to upper abdomen (patient terminated study). COMPARISON: [facility], MR, MR HEAD/BRAIN WO/W CON, 06/10/2019, 11:52. [facility], CR, XR CHEST 1V, 11/21/2020, 14:16. [facility], US, US PERIPH VENOUS LOW EXTREM BI, 11/21/2020, 15:09. [facility], CR, XR HIP W PEL IF DONE LT 2V, 12/15/2020, 14:36. FINDINGS: The patient reported significant whole-body pain, and was unable to persist through the entire examination. Diagnostic imaging was obtained from the skull vertex inferiorly to the upper margin of the abdomen. There is extensive osseous metastatic disease. This involves the spine, each shoulder, the sternum, posterior midline and left margin of the calvarium, and multiple ribs. There is asymmetric retention of isotope within the left kidney, partially visualized. The left pelvis is the area of plain film concern that led to this examination and it is possible that there is a mass within the left pelvis inferiorly contributing to left-sided hydronephrosis. IMPRESSION: The study was terminated by the patient at approximately 1/3 coverage, from the skull vertex to the approximate junction of the middle and lower thirds of the kidneys bilaterally. Extensive osseous metastatic disease is seen. There is suspicion for hydronephrosis on the left given the pattern of asymmetric prominence of left excreted isotope. CT scanning through the chest abdomen and pelvis likely is warranted both for further staging purposes and to establish potential site for safe CT-guided biopsy. Dictated by: Jus Killian M.D. on 12/25/2020 at 14:59 Approved by: Jus Killian M.D. on 12/25/2020 at 15:08
== END ==
PROVIDERS: PCP Family Medicine; Referring Provider Family Medicine; Visit Provider Family Medicine
DX: R74.8 Abnormal levels of other serum enzymes (principal); M89.8X5 Other specified disorders of bone, thigh
CPT/HCPCS: 78306; A9503